=== PATIENT | female | born 1980 | race Caucasian/White ===

== ENCOUNTER 2020-12-11 14:29 | Emergency (ER) | payer BC, OTHER ==
--- OUTSIDE RECORDS SUMMARY | 2020-12-11 14:34 | XMS REPORT | Continuity of Care Document ---
:1980 Author Organization [facility] t Address [address] [place] [address] Care Team Providers Name Role Phone CLAIRE Attending Clinician Unavailable BULMARO Attending Clinician Unavailable ANTON Attending Clinician Unavailable LEIF Attending Clinician Unavailable KATTY Attending Clinician Unavailable LEIF Attending Clinician Unavailable MARIANNE Attending Clinician Unavailable HARINI Attending Clinician Unavailable RUBIN Attending Clinician Unavailable Chet Garza Attending Clinician Problems Condition Condition Condition Status Onset Resolution Last Treating Co mments Source Name Details Category Date Date Treatment Clinician Date SOB Diagnosis Active 2014-072015-08-17 Mem oria 2-17 16:03:00 l SOB 00:00: [place] 00 Active 06/29/2015 [facility] B12 Condition Active 2013-072014-11-22 Mem oria DEFICIENCY 0-21 11:10:00 l B12 00:00: [place] DEFICIENCY 00 Active 05/03/2014 [facility] ALLERGIC Condition Active 2014-11-22 M emoria RHINITIS 1- 11:10:00 l ALLERGIC 00:00: Ramy n RHINITIS 00 Active 08/03/2013 [facility] 789.03 - Diagnosis Active 2012-072014-03-07 M emoria ABDMNAL - 05:26:00 l PAIN RT 789.03 - 00:01: Harper nn ABDMNAL 00 PAIN RT Active 06/07/2013 GATOD Burns DIABETES Condition Active 2014-11-22 M emoria MELLITUS, 03-16 11:10:00 l BORDERLINE DIABETES 00:00: Roberto camejo , MELLITUS, 00 CONTROLLED BORDERLINE , CONTROLLED Active 03/16/2013 [facility] VITAMIN D Condition Active 2014-11-22 Memoria DEFICIENCY - 11:10:00 l VITAMIN 00:00: [place] D 00 DEFICIENCY Active 01/12/2013 [facility] OVERWEIGHT Condition Active 2014-11-22 Memoria 6-11 11:10:00 l 00:00: [place] OVERWEIGHT 00 Active 12/22/2012 [facility] AMENORRHEA Condition Active 2014-11-22 Memoria 6-11 11:10:00 l 00:00: [place] AMENORRHEA 00 Active 12/22/2012 [facility] GERD Condition Active 2014-11-22 Mem oria 6-11 11:10:00 l GERD 00:00: [place] 00 Active 12/22/2012 [facility] INSOMNIA Condition Active 2014-11-22 M emoria 6- 11:10:00 l INSOMNIA 00:00: Ramy n 00 Active 12/22/2012 [facility] HYPERTENSI Condition Active 2014-11-22 Memoria ON - 11:10:00 l 00:00: [place] HYPERTENSI 00 ON Active 3 Condition 11/22/2014 Medical Group MIGRAINE Condition Active 2014-11-22 M emoria HEADACHE 10-23 11:10:00 l MIGRAINE 00:00: Ramy n HEADACHE 00 Active 10/23/2012 [facility] POLYCYSTIC Condition Active 2014-11-22 Memoria OVARIAN 10-23 11:10:00 l DISEASE 00:00: [place] POLYCYSTIC 00 OVARIAN DISEASE Active 10/23/2012 [facility] MOOD Condition Active 2014-11-22 Mem oria DISORDER - 11:10:00 l MOOD 00:00: [place] DISORDER 00 Active 10/23/2012 [facility] History of History of Problem Resolve Univers hypertensi hypertensi d it y of on on [place] Physici ans Extremity Extremity Problem Active Uni vers pain pain ity of [place] Physici ans Pain, Pain, Problem Active Univers dental dental ity of [place] Physici ans Atypical Atypical Problem Active Unive rs facial facial ity of pain pain [place] Physici ans Allergic Allergic Problem Active Unive rs rhinitis rhinitis ity of [place] Physici ans SOBOE SOBOE Problem Active Univers (shortness (shortness it [place] of of breath of breath [place] Physici exertion) exertion) ans Apnea, Apnea, Problem Active Univers sleep sleep ity of [place] Physici ans Palpitatio Palpitatio Problem Active U nivers ns ns ity of [place] Physici ans Atypical Atypical Problem Active Unive rs angina angina ity of [place] Physici ans Amenorrhea Amenorrhea Problem Active U nivers ity of [place] Physici ans Insulin Insulin Problem Active Univers resistance resistance it y of [place] Physici ans Prediabete Prediabete Problem Active U nivers s s ity of [place] Physici ans Problem Active Uni vers test test ity of negative negative [place] Physici ans Lumbar Lumbar Problem Active Univers radiculopa radiculopa it y of thy, acute [place] acute [place] [facility] Primary Primary Problem Active Univers osteoarthr osteoarthr it y of itis of itis of [place] left hip left hip Physic i ans Elbow Elbow Problem Active Univers pain, pain, ity of chronic, chronic, [place] right right Physici ans Atypical Atypical Problem Active Unive rs chest pain chest pain it y of [place] Physici ans Chest Chest Problem Active Univers pain, pain, ity of exertional exertional [place] Asthma in Asthma in Problem Active Uni vers adult adult ity of [place] Physici ans Pain of Pain of Problem Active Univers left hand left hand ity of [place] Physici ans Trigger Trigger Problem Active Univers ring ring ity of finger of finger of [place] left [place] hand Phys ici ans Amenorrhea Problem Active 2013-09-20 M emoria 15:20:12 l [place] Amenorrhea Active 09/20/2013 [facility] Problem Active 2013-09-20 Ga moria Test 15:20:12 l Negative [place] Test Negative Active 4 [facility] Limb Pain Problem Active 2013-09-20 Ga moria 15:20:12 l Limb [place] Pain Active 4 [facility] Obstructiv Problem Active 2020-12-06 M emoria e sleep 04:10:36 l apnea [place] Obstructiv e sleep apnea Active Problem 12/06/2020 2.16.840.1 .430295.4. 391.11.314 634 Chronic Problem Active 2020-12-06 Kale khanh GERD 04:10:36 l Chronic [place] GERD Active Problem 12/06/2020 2.16.840.1 .965569.4. 391.11.314 634 Type 2 Problem Active 2020-12-06 Memor ia diabetes 04:10:36 l mellitus Type 2 Ramy n with diabetes hyperglyce mellitus tank, with without hyperglyce long-term tank, current without use of long-term insulin current use of insulin Active Problem 12/06/2020 2.16.840.1 .883399.4. 391.11.314 634 Essential Problem Active 2020-12-06 Me moria (primary) 04:10:36 l hypertensi Ramy n on Essential (primary) hypertensi on Active Problem 2.16.840.1 .536352.4. 391.11.314 634 Vitamin D Problem Active 2020-12-06 Me moria deficiency 04:10:36 l Vitamin [place] D deficiency Active Problem 12/06/2020 2.16.840.1 .184973.4. 391.11.314 634 Mixed Problem Active 2020-12-06 Memor ia hyperlipid 04:10:36 l emia Mixed [place] hyperlipid emia Active Problem 12/06/2020 2.16.840.1 .357525.4. 391.11.314 634 PCOS Problem Active 2020-12-06 Memor ia (polycysti 04:10:36 l c ovarian PCOS [place] syndrome) (polycysti c ovarian syndrome) Active Problem 12/06/2020 2.16.840.1 .969978.4. 391.11.314 634 Major Problem Active 2020-12-06 Memor ia depressive 04:10:36 l disorder, Major Ramy n remission depressive status disorder, unspecifie remission d, status unspecifie unspecifie d whether d, recurrent unspecifie d whether recurrent Active Problem 12/06/2020 2.16.840.1 .903986.4. 391.11.314 634 Morbid Problem Active 2020-12-06 Memor ia obesity 04:10:36 l Morbid [place] obesity Active Problem 12/06/2020 2.16.840.1 .297202.4. 391.11.314 634 Vitamin B Problem Active 2020-12-06 Me moria 12 04:10:36 l deficiency Vitamin Her padgett B 12 deficiency Active Problem 12/06/2020 2.16.840.1 .201437.4. 391.11.314 634 Intermitte Problem Active 2020-12-06 M quintonria nt asthma 04:10:36 l without [place] complicati Intermitte on, nt asthma unspecifie without d asthma complicati severity on, unspecifie d asthma severity Active Problem 12/06/2020 2.16.840.1 .867284.4. 391.11.314 634 Suspected Diagnosis Active 2020-05-31 Memoria COVID-19 05:10:45 l virus [place] infection Suspected COVID-19 virus infection Active Diagnosis 05/31/2020 2.16.840.1 .534288.4. 391.11.314 634 Acute Diagnosis Active 2020-05-31 Mem oria sinusitis, 05:10:45 l recurrence Acute Harper nn not sinusitis, specified, recurrence unspecifie not d location specified, unspecifie d location Active Diagnosis 05/31/2020 2.16.840.1 .656236.4. 391.11.314 634 Dyspnea, Diagnosis Active 2020-01-12 emoria unspecifie 04:10:31 l d type Dyspnea, Ramy n unspecifie d type Active Diagnosis 01/12/2020 2.16.840.1 .373576.4. 391.11.314 634 Need for Diagnosis Active 2020-01-12 quintonria hepatitis 04:10:31 l C Need for Ramy n screening hepatitis test C screening test Active Diagnosis 01/12/2020 2.16.840.1 .727071.4. 391.11.314 634 Encounter Diagnosis Active 2020-01-12 Memoria for 04:10:31 l screening [place] for other Encounter disorder for screening for other disorder Active Diagnosis 01/12/2020 2.16.840.1 .684627.4. 391.11.314 634 Chronic Diagnosis Active 2020-04-22 Ga ayesha diarrhea 04:10:10 l Chronic [place] diarrhea Active Diagnosis 04/22/2020 2.16.840.1 .695525.4. 391.11.314 634 LLQ Diagnosis Active 2019-02-05 Mem oria abdominal 04:10:13 l pain LLQ [place] abdominal pain Active Diagnosis 02/05/2019 2.16.840.1 .597700.4. 391.11.314 634 Breast Diagnosis Active 2019-02-05 Mem oria lump 04:10:13 l Breast [place] lump Active Diagnosis 02/05/2019 2.16.840.1 .622160.4. 391.11.314 634 Left Diagnosis Active 2019-05-25 Mem oria anterior 05:10:24 l shoulder Left [place] pain anterior shoulder pain Active Diagnosis 05/25/2019 2.16.840.1 .494046.4. 391.11.314 634 Seborrheic Diagnosis Active 2020-08-23 Memoria dermatitis 05:10:24 l [place] Seborrheic dermatitis Active Diagnosis 08/23/2020 2.16.840.1 .384102.4. 391.11.314 634 Upper Diagnosis Active 2020-12-05 Mem oria respirator 04:10:24 l y tract Upper [place] infection, respirator unspecifie y tract d type infection, unspecifie d type Active Diagnosis 12/05/2020 2.16.840.1 .036955.4. 391.11.314 634 Bronchitis Diagnosis Active 2020-12-05 Memoria 04:10:24 l [place] Bronchitis Active Diagnosis 12/05/2020 2.16.840.1 .647356.4. 391.11.314 634 History of Past Illness Condition Condition Condition Status Onset Resolution Last Treating Co mments Source Name Details Category Date Date Treatment Clinician Date BACKACHE Condition Inactiv 2014-11-22 2014-11-22 Memoria NOS e - 11:10:00 11:10:00 l BACKACHE 00:00: Ramy n NOS 00 Inactive 10/20/2014 [facility] DIZZINESS Condition Inactiv 2014-11-22 2014-11-22 Memoria e - 11:10:00 11:10:00 l 00:00: [place] DIZZINESS 00 Inactive 02/21/2014 [facility] PERIPHERAL Condition Inactiv 2014-11-22 2014-11-22 Memoria EDEMA e - 11:10:00 11:10:00 l 00:00: [place] PERIPHERAL 00 EDEMA Inactive 12/09/2013 [facility] COUGH Condition Inactiv 2014-11-22 2014-11-22 Memoria e 4- 11:10:00 11:10:00 l COUGH 00:00: [place] 00 Inactive 11/08/2013 [facility] TONSILLITI Condition Inactiv 2014-11-22 2014-11-22 Memoria S e 4-28 11:10:00 11:10:00 l 00:00: [place] TONSILLITI 00 S Inactive 11/08/2013 [facility] OTITIS Condition Inactiv 2014-11-22 2014-11-22 Memoria MEDIA e 4-08 11:10:00 11:10:00 l OTITIS 00:00: [place] MEDIA 00 Inactive 10/19/2013 [facility] DE Condition Inactiv 2014-11-22 2014-11-22 Memoria QUERVAIN'S e 3-05 11:10:00 11:10:00 l TENOSYNOVI DE 00:00: Ramy n TIS, LEFT QUERVAIN'S 00 WRIST TENOSYNOVI TIS, LEFT WRIST Inactive 09/15/2013 [facility] GRIEF Condition Inactiv 2014-11-22 2014-11-22 Memoria REACTION e 3-05 11:10:00 11:10:00 l GRIEF 00:00: [place] REACTION 00 Inactive 09/15/2013 [facility] KNEE PAIN, Condition Inactiv 2014-11-22 2014-11-22 Memoria RIGHT, e 1-10 11:10:00 11:10:00 l ACUTE KNEE 00:00: [place] PAIN, 00 RIGHT, ACUTE Inactive 07/23/2013 [facility] ABDOMINAL Condition Inactiv 2012-072014-11-22 2014-11-22 Memoria PAIN, e 1-22 11:10:00 11:10:00 l RIGHT 00:00: [place] LOWER ABDOMINAL 00 QUADRANT PAIN, RIGHT LOWER QUADRANT Inactive 06/04/2013 [facility] VERRUCA Condition Inactiv 2014-11-22 2014-11-22 Memoria VULGARIS e 9-03 11:10:00 11:10:00 l VERRUCA 00:00: [place] VULGARIS 00 Inactive 03/16/2013 [facility] ROUTINE Condition Inactiv 2014-11-22 2014-11-22 Memoria GENERAL e 6- 11:10:00 11:10:00 l MEDICAL ROUTINE 00:00: Ramy n [email or web address] 00 H CARE MEDICAL FACL [email or web address] FACL Inactive 12/22/2012 [facility] SCREENING, Condition Inactiv 2014-11-22 2014-11-22 Memoria DIABETES e 6-11 11:10:00 11:10:00 l MELLITUS 00:00: [place] SCREENING, 00 DIABETES MELLITUS Inactive 12/22/2012 [facility] FATIGUE Condition Inactiv 2014-11-22 2014-11-22 Memoria e 6- 11:10:00 11:10:00 l FATIGUE 00:00: [place] 00 Inactive 12/22/2012 [facility] LATERAL Condition Inactiv 2014-11-22 2014-11-22 Memoria EPICONDYLI e 6-11 11:10:00 11:10:00 l TIS LATERAL 00:00: [place] EPICONDYLI 00 TIS Inactive 12/22/2012 [facility] ACUTE Condition Inactiv 2014-11-22 2014-11-22 Memoria PHARYNGITI e -12 11:10:00 11:10:00 l S ACUTE 00:00: [place] PHARYNGITI 00 S Inactive 10/23/2012 [facility] Allergies, Adverse Reactions, Alerts Allergy Allergy Status Severity Reaction(s) Onset Inactive Treating Comm ents Source Name Type Date Date Clinician Sulfamet Sulfamet Active Info Not Kale khanh hoxazole hoxazole Available 5-24 l 00:00: [place] 00 Flagyl Flagyl Active Info Not Memoria Available 5-24 l 00:00: Doxycycl Doxycycl Active Info Not Kale khanh ine ine Available 5-24 l Hyclate Hyclate 00:00: SULFA SULFA Active Memoria 4-12 l 00:00: DOXYCYCL DOXYCYCL Active Memori a INE INE 4-12 l 00:00: Doxycycl Allergy Active Univers ine to drug ity of Monohydr (finding [place] ate CAPS ) Physici ans Sulfa Allergy Active Univers Drugs to drug ity of (finding [place] ) Physici ans Sulfa Sulfa Active Memoria Drugs Drugs l Doxycycl Doxycycl Active Memori a ine ine l Monohydr Monohydr Ramy n ate CAPS ate CAPS Family History Family Member Diagnosis Comments Start Date Stop Date Source Grandmother Family history of Type U [facility] 2 diabetes mellitus Physi cians without complication Grandmother [facility] Mother Family history of Univers ity [facility] Asthma Physicians Mother Family history of Univers ity [facility] Cancer Physicians Mother Family history of Univers ity [facility] malignant neoplasm of Phy sicians uterus Mother Family history of Univers ity [facility] Heart disease Physicians Mother Family history of Univers ity [facility] Allergy Physicians Father Family history of Univers ity of [place] Unknown cause of Physicia ns morbidity or mortality Social History Social Habit Start Date Stop Date Quantity Comments Source Social History 2013-09-20 2013-09-20 [facility] allen 15:20:12 15:20:12 Smoking Status Start Date Stop Date Source Never smoked tobacco (finding) U [facility] Physicians Medications Ordered Filled Start Stop Current Ordering Indication Dosage Frequency Signature Comments Components Source Medication Medication Date Date Medication? Clinician (SIG) Name Name Topamax Yes KHURSHEED 1 tablet M emoria 5-25 BANGLAWALA l 04:10: Accu-Chek Yes KHURSHEED as Mem oria Gwen 5-25 BANG[place]WAL[place] directed l 04:10: 24 BD Yes KHURSHEED as Memoria Ultra-Fine 5-25 BANGLAWAL[place] directed l Pen [place] 04:10: Ramy n 24 immodium Yes KHURSHEED 2 tab Mem oria 5-25 BANGLAWALA l 04:10: [place] Omeprazole 0 Yes KHURSHEED 1 capsule Memoria 5-25 BANGLAWALA l 04:10: [place] Vitamin D-3 0 Yes KHURSHEED 1 tablet Memoria 5-25 BANGLAWALA l 04:10: [place] Lasix 0 Yes KHURSHEED 1 tablet Mem oria 5-25 BANGLAWALA l 04:10: [place] ZyrTEC 0 Yes KHURSHEED 1 tablet Me moria 5-25 BANGLAWALA l 04:10: [place] 24 Aspirin EC 0 Yes KHURSHEED 1 tablet Memoria Lo-Dose 5-25 BANGLAWALA l 04:10: [place] Singulair 0 Yes KHURSHEED 1 tablet Memoria 5-25 BANGLAWALA l 04:10: [place] Lexapro 0 Yes KHURSHEED 1 tablet M emoria 5-25 BANGLAWALA l 04:10: [place] Breo 0 Yes KHURSHEED 1 puff Memori a Ellipta 5-25 BANGLAWALA l 04:10: [place] Bystolic 0 Yes KHURSHEED 1 tablet Memoria 5-25 BANGLAWALA l 04:10: [place] Trulicity 0 Yes KHURSHEED 1.5mg Me moria 5-25 BANGLAWALA l 04:10: [place] Loperamide 0 Yes KHURSHEED TAKE 2 Memoria HCl 5-25 BANGLAWALA TABLETS BY l 04:10: MOUTH [place] 24 DAILY Promethazin 0 Yes KHURSHEED 5 ml as Memoria e-DM 5-25 BANGLAWALA needed l 00:00: [place] 00 Zithromax 0 Yes KHURSHEED as Mem oria Z-Aubrie 5-24 BANGLAWALA directed l 00:00: [place] 00 Trulicity 0 Yes KHURSHEED 1.5mg Me moria 2-10 BANGLAWALA l 05:10: [place] 37 Bystolic 0 Yes KHURSHEED 1 tablet Memoria 2-10 BANGLAWALA l 05:10: [place] 24 Omeprazole 0 Yes KHURSHEED 1 capsule Memoria 2-10 BANGLAWALA l 05:10: [place] 24 Trulicity 2020-0 Yes KHURSHEED 1.5mg Me moria 1-06 BANGLAWALA l 00:00: [place] 00 Zithromax 2019- Yes KHURSHEED 2 tablet Memoria Z-Aubrie 1-17 BANGLAWALA on the l 00:00: first day, [place] 00 then 1 tablet daily for 4 days Montelukast Montelukast 2019- Yes TEDDY 1 TAKE 1 Univers Sodium 10 Sodium 10 0-16 ANTON TABLET AT ity of MG Oral MG Oral 00:00: M.D. BEDTIME. [place]hinde as Tablet Tablet 00 Physici ans Breo Breo 2019-07 Yes TEDDY 1 QD INHALE 1 Univers Ellipta Ellipta 0-16 ANTON PUFFS ity of 200-25 200-25 00:00: M.D. DAILY [place] MCG/INH MCG/INH 00 Physici Inhalation Inhalation ans Aerosol Aerosol Powder Powder Breath Breath Activated Activated Albuterol Albuterol 2019-07 Yes TEDDY INHALE 1 Univers Sulfate HFA Sulfate HFA 0-16 ANTON TO 2 PUFFS ity of 108 (90 108 (90 00:00: M.D. EVERY [place] [facility] [facility] 00 6 HOURS Physici MCG/ACT MCG/ACT NEEDED. ans Inhalation Inhalation Aerosol Aerosol Solution Solution Meloxicam 2019-07 Yes KHURSHEED 1 tablet Memoria 0-10 BANGLAWALA l 04:10: [place] 10 Trulicity 2020-0 Yes KHURSHEED 0.75mg M emoria 9-29 BANGLAWALA l 00:00: [place] 00 Trulicity 2020-0 Yes KHURSHEED as Mem oria 9-28 BANGLAWALA directed l 00:00: [place] 00 Pristiq 2020-0 Yes KHURSHEED 1 tablet M emoria 6-30 BANGLAWALA l 00:00: [place] 00 ProAir HFA 2020-0 Yes KHURSHEED 2 puff as Memoria 3-16 BANGLAWALA needed l 00:00: [place] 00 ProAir HFA 2020-0 Yes KHURSHEED 2 puff as Memoria 3-16 BANGLAWALA needed l 00:00: [place] 00 Celexa 2018-07 Yes KHURSHEED 1 tablet Me moria 1-12 BANGLAWALA l 05:10: Lexapro 2019-1 Yes KHURSHEED 1 tablet M emoria 1-11 BANGLAWALA l 00:00: Meloxicam 2019-1 Yes KHURSHEED 1 tablet Memoria 1-11 BANGLAWALA l 00:00: Meloxicam 2019-0 Yes KHURSHEED 1 tablet Memoria 7-26 BANGLAWALA l 04:10: Tramadol 2019-0 Yes KHURSHEED 1 tablet Memoria HCl 7-26 BANGLAWALA as needed l 04:10: Trulicity 2019-0 Yes KHURSHEED as Mem oria 7-25 BANGLAWALA directed l 00:00: MetFORMIN 2019-0 Yes KHURSHEED 1 tablet Memoria HCl ER 2-27 BANGLAWALA l 00:00: MetFORMIN 2019-0 Yes KHURSHEED 1 tablet Memoria HCl ER 2-27 BANGLAWALA l 00:00: Colestipol 2019-0 Yes KHURSHEED 2 tablets Memoria HCl 2-27 BANGLAWALA l 00:00: Meloxicam Meloxicam Yes ASYA TAKE 1 Univers 7.5 MG Oral 7.5 MG Oral 7-24 CRUMBIE TABLET ity of Tablet Tablet 00:00: M.D. DAILY [place] 00 NEEDED. Physici ans methylPREDN methylPREDN Yes ASYA ONE TABLE Univers ISolone 4 ISolone 4 7-24 CRUMBIE TWICE i ty of MG Oral MG Oral 00:00: M.D. DAILY [place] Tablet Tablet 00 Physici ans medroxyPROG medroxyPROG Yes ABHISHEK TAKE 1 Univers ESTERone ESTERone 7-27 PRACHI-EFTE TABLET ity of Acetate 10 Acetate 10 00:00: FAREED M.D. DAILY for [place] MG Oral MG Oral 00 ten days Physi ci Tablet Tablet every 6 ans weeks if no menses Vitamin D Vitamin D Yes 2 capsules Univers (Cholecalci (Cholecalci 5-10 daily ity of ferol) 10 ferol) 10 00:00: Kehinde as MCG (400 MCG (400 00 Physici UNIT) Oral UNIT) Oral ans Capsule Capsule ZyrTEC ZyrTEC 2017-0 Yes 1 TAKE 1 Univers Allergy 10 Allergy 10 5-10 TABLET AT ity of MG Oral MG Oral 00:00: BEDTIME. Kehinde as Tablet Tablet 00 Physici ans EQ EQ Yes 1 capsule [facility] Omeprazole Omeprazole 5-10 daily it y of Magnesium Magnesium 00:00: Kehinde as 20 MG Oral 20 MG Oral 00 Phy sici Capsule Capsule ans Delayed Delayed Release Release VITAMIN D Yes 1 capsule Mem oria (ERGOCALCIF 5-20 weekly l DOTTIE) 00:00: Ramy n UNIT CAPS 00 VIMOVO Yes one by Memoria 500-20 MG 4-09 mouth l TBEC 00:00: twice a [place] 00 day as needed for pain METHYLPREDN No take as Mem oria ISOLONE 4-09 directed l (AUBRIE) 4 MG 00:00: [place] TABS 00 CYCLOBENZAP Yes 1 or 2 Kale khanh RINE HCL 10 4-09 tablets at l MG TABS 00:00: night as Ramy n 00 needed for spasms or tension VITAMIN D 2013-07 No 1 capsule Mem oria (ERGOCALCIF 0-26 weekly l DOTTIE) 00:00: Ramy n UNIT CAPS 00 METFORMIN 2013-07 No 1 tablet Kale khanh HCL ER 500 0-26 daily x 1 l MG 00:00: week, then [place] [id number] 00 increase to 1 tab twice daily as tolerated METFORMIN 2013-07 Yes 1 tablet Kale khanh HCL ER 500 0-26 daily x 1 l MG 00:00: week, then [place] [id number] 00 increase to 1 tab twice daily as tolerated TRIAMTERENE No 1 tab po Me moria -HCTZ 5-29 daily as l 37.5-25 MG 00:00: needed for H ermann TABS 00 peripheral edema TRIAMTERENE No 1 tab po Me moria -HCTZ 5-29 daily as l 37.5-25 MG 00:00: needed for H ermann TABS 00 peripheral edema TUSSIONEX No Take one Kale khanh PENNKINETIC 5-01 teaspoon l ER 10-8 00:00: (5 ml) [place] MG/5ML LQCR 00 twice daily as needed for cough ULTRAM TABS No 1 tablets M emoria 50 MG 4-28 every 8 l 00:00: hours as [place] 00 needed for pain NEURONTIN No Take one Kale khanh 300 MG CAPS 4-28 capsule by l 00:00: mouth [place] 00 twice a day MEDROL No Take as Memoria (AUBRIE) 4 MG 4-28 directed l TABS 00:00: [place] 00 ZITHROMAX No 2 tablets Mem oria TAB 250MG 4-28 today, l 00:00: then 1 [place] 00 tablet daily X 4 days MUCINEX DM No Take 1 Memor ia 30-600 MG 4-28 tablet by l TB12 00:00: mouth [place] 00 every 12 hours NEURONTIN No Take one Kale khanh 300 MG CAPS 4-28 capsule by l 00:00: mouth [place] 00 twice a day ULTRAM TABS No 1 tablets M emoria 50 MG 4-28 every 8 l 00:00: hours as [place] 00 needed for pain MEDROL No Take as Memoria (AUBRIE) 4 MG 4-28 directed l TABS 00:00: [place] 00 MUCINEX DM No Take 1 Memor ia 30-600 MG 4-28 tablet by l TB12 00:00: mouth [place] 00 every 12 hours NEURONTIN No Take one Kale khanh 300 MG CAPS 4-28 capsule by l 00:00: mouth [place] 00 twice a day CLARITIN No 1 tablet Memor ia TAB 10MG 4-08 daily l 00:00: [place] 00 TESSALON No Take one Memor ia PER CAP 4-08 capsule 3 l 100MG 00:00: times [place] 00 daily as needed for cough or congestion ZITHROMAX No 2 tablets Mem oria Z-AUBRIE 250 4-08 day 1, l MG TABS 00:00: then 1 [place] 00 tablet daily X 4 days NASONEX No Two sprays Kale khanh SUSP 50 4-08 each l MCG/ACT 00:00: nostril [place] 00 daily CLARITIN No 1 tablet Memor ia TAB 10MG 4-08 daily l 00:00: [place] 00 NASONEX No Two sprays Kale khanh SUSP 50 4-08 each l MCG/ACT 00:00: nostril daily MEDROL No Take as Memoria (AUBRIE) 4 MG 3-05 directed l TABS 00:00: MEDROL No Take as Memoria (AUBRIE) 4 MG 3-05 directed l TABS 00:00: XYZAL 5 MG No 1 po qd Kale khanh TABS 1-21 prn l 00:00: allergies FLONASE 50 No 1-2 sprays M emoria MCG/ACT 1-21 in each l SUSP 00:00: nostril daily FLONASE 50 No 1-2 sprays M emoria MCG/ACT 1-21 in each l SUSP 00:00: nostril daily NAPROSYN No 1 tab po Memor ia 500 MG TABS 1-10 q12 prn l 00:00: pain METFORMIN No taking tid Me moria LIQUID FORM 9-03 l 00:00: PROVERA 10 No 1 tab po Mem oria MG TABS 9-03 qd l 00:00: Bystolic 5 Yes ; Start Kale khanh MG Oral 03-09 Date: l Tablet 05:00: 03/09/2013 Harper nn 00 (Active) Topamax 25 Yes ; Start Kale khanh MG Oral 03-09 Date: l Tablet 05:00: 03/09/2013 Harper nn 00 (Active) CeleXA 20 Yes ; Start Memor ia MG Oral 03-09 Date: l Tablet 05:00: 03/09/2013 Harper nn 00 (Active) Glucophage Yes ; Start Kale khanh 500 MG Oral 03-09 Date: l Tablet 05:00: 03/09/2013 Harper nn 00 (Active) Claritin-D Yes ; Start Kale khanh 12 Hour 03-09 Date: l 5-120 MG 05:00: 03/09/2013 Her padgett Oral Tablet 00 (Active) Extended Release 12 Hour Vitamin D Yes ; Start Memor ia (Ergocalcif 03-09 Date: l dottie) [id number] 05:00: 03/09/2013 [place] UNIT Oral 00 (Active) Capsule MedroxyPROG Yes ; Start Mem oria ESTERone 03-09 Date: l Acetate 10 05:00: 03/09/2013 H ermann MG Oral 00 (Active) Tablet VITAMIN D Yes 1 tab po q Me moria (ERGOCALCIF 7-02 weekly for l DOTTIE) 00:00: 12 weeks He rmann UNIT CAPS 00 VITAMIN D Yes 1 tab po q Me moria (ERGOCALCIF 7-02 weekly for l DOTTIE) 00:00: 12 weeks He rmann UNIT CAPS 00 BYSTOLIC 5 Yes 1 tab po Mem oria MG TABS 4-12 qd for l 00:00: blood [place] 00 pressure CELEXA 20 Yes 1 tab po Kale khanh MG TABS 4-12 daily for l 00:00: mood [place] 00 TOPAMAX 25 Yes 1 tab po Mem oria MG TABS 4-12 bid for l 00:00: migraines [place] 00 AMBIEN 5 MG No 1 po qhs Me moria TABS 4-12 prn l 00:00: [place] 00 AUGMENTIN No 1 tab po Kale khanh 875-125 MG 4-12 bid x 10 l TABS 00:00: days for [place] 00 pharyngiti s CELEXA 20 Yes 1 tab po Kale khanh MG TABS 4-12 daily for l 00:00: mood [place] 00 TOPAMAX 25 Yes 1 tab po Mem oria MG TABS 4-12 bid for l 00:00: migraines [place] 00 AUGMENTIN No 1 tab po Kale khanh 875-125 MG 4-12 bid x 10 l TABS 00:00: days for [place] 00 pharyngiti s AMBIEN 5 MG No 1 po qhs Me moria TABS 4-12 prn l 00:00: [place] 00 BYSTOLIC 10 Yes 1 tablet Me moria MG TABS 4-12 daily l 00:00: [place] 00 BYSTOLIC 5 Yes 1 tab po Mem oria MG TABS 4-12 qd for l 00:00: blood [place] 00 pressure TOPAMAX 25 Yes 1 tab po Mem oria MG TABS 4-12 bid for l 00:00: migraines AMBIEN 5 MG No 1 po qhs Me moria TABS 4-12 prn l 00:00: BYSTOLIC 10 Yes 1 tablet Me moria MG TABS 4-12 daily l 00:00: Lexapro 20 Lexapro 20 Yes Uni vers MG Oral MG Oral ity of Tablet Tablet [place] [facility] Glucophage Glucophage Yes Uni vers 500 MG TABS 500 MG TABS i ty of [place] [facility] Trulicity Trulicity Yes Unive rs 0.75 0.75 ity of MG/0.5ML MG/0.5ML [place] Subcutaneou Subcutaneou P hysici s Solution s Solution ans Pen-injecto Pen-injecto r r Lasix 20 MG Lasix 20 MG Yes U nivers Oral Tablet Oral Tablet i ty of [place] [facility] Bystolic 10 Bystolic 10 Yes 1 QD TAKE 1 Univers MG Oral MG Oral TABLET ity of Tablet Tablet DAILY. [place] [facility] Topamax 50 Topamax 50 Yes 1 QD TAKE 1 U nivers MG Oral MG Oral TABLET ity of Tablet Tablet DAILY. [place] [facility] Aspirin 81 Aspirin 81 Yes Uni vers MG TABS MG [facility]S [facility] Immunizations Ordered Immunization Filled Immunization Date Status Commen ts Source Name Name Fluzone Quadrivalent 2020-04-28 Completed Univ ersity of 0.5 ML Intramuscular 11:30:00 [place] Suspension Prefilled Syringe Vital Signs Vital Name Observation Time Observation Value Comments Source Weight 2020-12-04 [facility] Ramy n 22:45:00 [facility] Diastolic (mm Hg) 2020-12-04 [facility] ermann 22:45:00 Systolic (mm Hg) 2020-12-04 [facility] rmann 22:45:00 Weight 2020-08-22 [facility] Ramy n 16:30:00 Height 2020-08-22 [facility] Ramy n 16:30:00 Temperature Oral 2020-08-22 98.1 F [facility] rmann (F) 16:30:00 Heart Rate 2020-08-22 [facility] Ramy n 16:30:00 Diastolic (mm Hg) 2020-08-22 Krishna Pace ermann 16:30:00 Systolic (mm Hg) 2020-08-22 [facility] Roberto rmann 16:30:00 Weight 2020-05-30 Krishna Mccann n 20:45:00 Height 2020-05-30 Krishna Mccann n 20:45:00 Systolic blood 2020-05-09 116 mm[Hg] Location: BRIGIDA; [facility] 11:51:00 Position: [place] [facility] s Sitting Diastolic blood 2020-05-09 70 mm[Hg] Location: KAYLAN; [facility] 11:51:00 Position: [place] [facility] Sitting Body height 2020-05-09 64 [in_us] University of 11:51: [place] [facility] Weight 2020-05-09 377 [lb_av] University of 11:51: [place] [facility] Body mass index 2020-05-09 64.71 kg/m2 University o f (BMI) [Ratio] 11:51:00 [place] [facility] Body temperature 2020-05-09 97.9 [degF] Method: [place] of :51: Tympanic [place] [facility] Heart Rate 2020-05-09 90 /min Location: [place] of 11:51:00 Brachial [place] [facility] Artery; Respiratory rate 2020-05-09 18 /min Quality: Normal Universi ty of 11:51:00 [place] [facility] O2 SAT 2020-05-09 97 % Source: [place] of 11:51:00 [place] [facility] Systolic blood 2020-04-28 139 mm[Hg] Location: WINNIE; [facility] 11:18:00 Position: [place] Physician s Sitting Diastolic blood 2020-04-28 85 mm[Hg] Location: WINNIE; [facility] 11:18:00 Position: [place] Physician s Sitting Body height 2020-04-28 64 [in_us] University of 11:18:00 [place] [facility] Weight 2020-04-28 377 [lb_av] University of 11:18:00 [place] [facility] Body mass index 2020-04-28 64.71 kg/m2 University o f (BMI) [Ratio] 11:18:00 [place] [facility] Body temperature 2020-04-28 97.5 [degF] University of 11:18:00 [place] [facility] Heart Rate 2020-04-28 85 /min University of 11:18:00 [place] [facility] Respiratory rate 2020-04-28 18 /min University of 11:18:00 [place] [facility] O2 SAT 2020-04-28 97 % Source: [facility] :18:00 Non-Rebreather [place] [facility] Weight 2020-04-20 [facility] Ramy n 19:15:00 Height 2020-04-20 Krishna Mccann n 19:15:00 Systolic blood 2020-04-12 146 mm[Hg] Location: RUE; [facility] 15:48:00 Position: [place] Physician s Sitting Diastolic blood 2020-04-12 75 mm[Hg] Location: RUE; [facility] 15:48:00 Position: [place] [facility]ician s Sitting Body height 2020-04-12 64 [in_us] University of 15:48:00 [place] [facility] Weight 2020-04-12 381.375 [lb_av] University o f 15:48:00 [place] [facility] Body mass index 2020-04-12 65.46 kg/m2 University o f (BMI) [Ratio] 15:48:00 [place] [facility] Body temperature 2020-04-12 97.8 [degF] Method: [facility] 15:48:00 Temporal [place] [facility] Heart Rate 2020-04-12 82 /min Location: R [facility] 15:48:00 Brachial [place] [facility] Artery; Respiratory rate 2020-04-12 16 /min Quality: Normal Universi ty of 15:48:00 [place] [facility] Systolic blood 2020-02-24 152 mm[Hg] Location: RUE; [facility] 10:00:00 Position: [place] Physician s Sitting Diastolic blood 2020-02-24 85 mm[Hg] Location: RUE; [facility] 10:00:00 Position: [place] Physician s Sitting Body height 2020-02-24 64 [in_us] University of 10:00:00 [place] [facility] Weight 2020-02-24 376 [lb_av] University of 10:00:00 [place] [facility] Body mass index 2020-02-24 64.54 kg/m2 University o f (BMI) [Ratio] 10:00:00 [place] [facility] Body temperature 2020-02-24 97.9 [degF] University of 10:00:00 [place] [facility] Heart Rate 2020-02-24 85 /min University of 10:00:00 [place] [facility] Respiratory rate 2020-02-24 18 /min University of 10:00:00 [place] [facility] O2 SAT 2020-02-24 98 % Source: [facility] 10:00:00 [place] [facility] Weight 2020-01-11 [facility] Ramy n 16:00:00 Height 2020-01-11 [facility] Ramy n 16:00:00 Temperature Oral 2020-01-11 97.5 F [facility] rmann (F) 16:00:00 Heart Rate 2020-01-11 [facility] Ramy n 16:00:00 Diastolic (mm Hg) 2020-01-11 [facility] ermann 16:00:00 Systolic (mm Hg) 2020-01-11 [facility] rmann 16:00:00 Weight 2019-05-24 [facility] Ramy n 16:45:00 Height 2019-05-24 [facility] Ramy n 16:45:00 Temperature Oral 2019-05-24 98.0 F [facility] (F) 16:45:00 Heart Rate 2019-05-24 [facility] Ramy n 16:45:00 Diastolic (mm Hg) 2019-05-24 [facility] ermann 16:45:00 Systolic (mm Hg) 2019-05-24 [facility] rmann 16:45:00 Weight 2019-02-04 [facility] Ramy n 15:00:00 Height 2019-02-04 [facility] Ramy n 15:00:00 Temperature Oral 2019-02-04 97.9 F [facility] (F) 15:00:00 Heart Rate 2019-02-04 [facility] Ramy n 15:00:00 Diastolic (mm Hg) 2019-02-04 [facility] ermann 15:00:00 Systolic (mm Hg) 2019-02-04 [facility] rmann 15:00:00 Weight 2014-11-22 [facility] Ramy n 15:32:43 Temperature Oral 2014-11-22 97.0 F [facility] (F) 15:32:43 Systolic (mm Hg) 2014-11-22 [facility] rmann 15:32:43 Diastolic (mm Hg) 2014-11-22 [facility] ermann 15:32:43 Heart Rate 2014-11-22 [facility] Ramy n 15:32:43 Weight 2014-10-20 [facility] Ramy n 14:10:13 Temperature Oral 2014-10-20 97.3 F [facility] (F) 14:10:13 Systolic (mm Hg) 2014-10-20 [facility] rmann 14:10:13 Diastolic (mm Hg) 2014-10-20 [facility] ermann 14:10:13 Heart Rate 2014-10-20 [facility] Ramy n 14:10:13 Height 2014-05-03 [facility] Ramy n 13:04:41 Temperature Oral 2014-05-03 99.0 F [facility] (F) 13:04:41 Heart Rate 2014-05-03 [facility] Ramy n 13:04:41 Systolic (mm Hg) 2014-05-03 [facility] rmann 13:04:41 Diastolic (mm Hg) 2014-05-03 [facility] ermann 13:04:41 Weight 2014-05-03 [facility] Ramy n 13:04:41 Weight 2014-02-21 [facility] Ramy n 12:58:51 Temperature Oral 2014-02-21 97.5 F [facility] (F) 12:58:51 Systolic (mm Hg) 2014-02-21 [facility] rmann 12:58:51 Diastolic (mm Hg) 2014-02-21 [facility] ermann 12:58:51 Temperature Oral 2013-12-09 97.2 F [facility] (F) 12:37:40 Heart Rate 2013-12-09 [facility] Ramy n 12:37:40 Systolic (mm Hg) 2013-12-09 [facility] rmann 12:37:40 Diastolic (mm Hg) 2013-12-09 [facility] ermann 12:37:40 Weight 2013-12-09 [facility] Ramy n 12:37:40 Weight 2013-11-08 [facility] Ramy n 16:03:22 Temperature Oral 2013-11-08 97.7 F [facility] (F) 16:03:22 Systolic (mm Hg) 2013-11-08 [facility] rmann 16:03:22 Diastolic (mm Hg) 2013-11-08 [facility] ermann 16:03:22 Heart Rate 2013-11-08 [facility] Ramy n 16:03:22 Weight 2013-10-19 [facility] Ramy n 18:33:28 Temperature Oral 2013-10-19 97.7 F [facility] (F) 18:33:28 Systolic (mm Hg) 2013-10-19 [facility] 18:33:28 Diastolic (mm Hg) 2013-10-19 [facility] ermann 18:33:28 Heart Rate 2013-10-19 [facility] Ramy n 18:33:28 Weight 2013-09-15 [facility] Ramy n 19:03:41 Temperature Oral 2013-09-15 97.8 F [facility] (F) 19:03:41 Heart Rate 2013-09-15 [facility] Ramy n 19:03:41 Systolic (mm Hg) 2013-09-15 [facility] rmann 19:03:41 Diastolic (mm Hg) 2013-09-15 [facility] ermann 19:03:41 Heart Rate 2013-08-03 [facility] Ramy n 18:58:22 Systolic (mm Hg) 2013-08-03 [facility] rmann 18:58:22 Diastolic (mm Hg) 2013-08-03 [facility] ermann 18:58:22 Temperature Oral 2013-08-03 97.4 F [facility] (F) 18:58:22 Weight 2013-08-03 [facility] Ramy n 18:58:22 Weight 2013-07-23 [facility] Ramy n 14:16:21 Temperature Oral 2013-07-23 96.8 F [facility] (F) 14:16:21 Systolic (mm Hg) 2013-07-23 [facility] 14:16:21 Diastolic (mm Hg) 2013-07-23 [facility] ermann 14:16:21 Heart Rate 2013-07-23 [facility] Ramy n 14:16:21 Weight 2013-06-04 [facility] Ramy n 20:33:42 Temperature Oral 2013-06-04 96.3 F [facility] (F) 20:33:42 Systolic (mm Hg) 2013-06-04 [facility] 20:33:42 Diastolic (mm Hg) 2013-06-04 [facility] ermann 20:33:42 Heart Rate 2013-06-04 [facility] Ramy n 20:33:42 Temperature Oral 2013-03-16 96.3 F [facility] (F) 19:39:33 Heart Rate 2013-03-16 [facility] Ramy n 19:39:33 Systolic (mm Hg) 2013-03-16 [facility] rmann 19:39:33 Diastolic (mm Hg) 2013-03-16 [facility] ermann 19:39:33 Weight 2013-03-16 [facility] Ramy n 19:39:33 Weight 2012-12-22 [facility] Ramy n 19:24:50 Temperature Oral 2012-12-22 97.9 F [facility] (F) 19:24:50 Systolic (mm Hg) 2012-12-22 [facility] 19:24:50 Diastolic (mm Hg) 2012-12-22 [facility] ermann 19:24:50 Heart Rate 2012-12-22 Krishna Mccann n 19:24:50 Height 2012-10-23 Krishna Mccann n 18:54:00 Temperature Oral 2012-10-23 98.2 F Krishna Mejia rmann (F) 18:54:00 Systolic (mm Hg) 2012-10-23 Krishna Mejia rmann 18:54:00 Diastolic (mm Hg) 2012-10-23 [facility] Katelynn ermann 18:54:00 Heart Rate 2012-10-23 Krishna Mccann n 18:54:00 Weight 2012-10-23 Krishna Mccann n 18:54:00 Procedures Procedure Date / Time Performing Clinician Source Performed [U] XRAY HAND MIN 3 VWS 2020-10-02 00:00:00 [facility] LEFT [id number] Physicians [N] 30 Day Event Monitor 2020-05-09 00:00:00 [facility] Recording Physicians [N] Plain Treadmill-Non 2020-04-13 00:00:00 [facility] Imaging Stress Physicians Test-Standard Narinder [N] 2D Echo complete, with 2020-04-13 [facility] [id number] [facility] Sleep Lab - Sleep 2020-02-24 00:00:00 [facility] Study Home Sleep Test Physicians [N] 2D Echo complete, with 2020-02-24 00:00[facility] [id number] Physicians [U] XRAY ELBOW MIN 3 VWS 2019-11-24 00:00:00 [facility] RIGHT [id number] Physicians Physical Therapy 2018-08-17 00:00:00 [facility] Physicians [U] XRAY HIPS BILATERAL 2018-08-14 00:00:00 Univ [facility] MIN 2 VWS AND AP PELVIS Physici ans [id number] [U] XRAY SPINE LUMBOSACRAL 2018-08-14 00:00[facility] VWS [id number] Physicians [U] XRAY SPINE LUMBOSACRAL 2018-04-08 00:00[facility] S [id number] Physicians [UTP] EMG 2018-02-02 00:00:00 [place] [facility] [place] [facility] History of Cholecystectomy Unive [facility] Physicians Plan of Care Planned Activity Planned Date Details Comments Source Diagnostic Test 2020-04-13 [N] 2D Echo [facility] Pending 00:00:00 complete, with Physicians Doppler 32541 [code = [N] 2D Echo complete, with Doppler 74683] Diagnostic Test 2020-04-13 [N] Plain [facility] Pending 00:00:00 Treadmill-Non Physicians Imaging Stress Test-Standard Narinder [code = [N] Plain Treadmill-Non Imaging Stress Test-Standard Narinder] Diagnostic Test 2020-02-24 [N] 2D Echo [facility] Pending 00:00:00 complete, with Physicians Doppler 11639 [code = [N] 2D Echo complete, with Doppler 97722] Diagnostic Test 2020-02-24 [facility] Sleep Lab - [facility] Pending 00:00:00 Sleep Study Home Physicians Sleep Test [code = [facility] Sleep Lab - Sleep Study Home Sleep Test] Diagnostic Test 2018-02-26 [UTP] EMG [code = [facility] [place] Pending 00:00:00 [UTP] EMG] Physicians Diagnostic Test 2018-02-02 [UTP] EMG [code = [facility] [place] Pending 00:00:00 [UTP] EMG] Physicians Diagnostic Test 2018-02-02 [UTP] EMG [code = [facility] [place] Pending 00:00:00 [UTP] EMG] Physicians Diagnostic Test 2018-02-02 [UTP] EMG [code = [facility] [place] Pending 00:00:00 [UTP] EMG] Physicians Future Scheduled Test 2013-09-20 Plan of Care [facility] [place] 15:20:12 [code = 22844-2] Encounters Start End Encounter Admission Attending Care Care Encounter Source Date/Time Date/Time Type Type Clinicians Facility Department ID 2020-12-05 2020-12-05 [id number] [facility] 14:[facility] 14:03:00 [facility] ve Family Family Medcine Medcine 2020-12-04 2020-12-04 [facility] [id number] [facility] 17:45:00 17:45:00 Integrati Integrative alWorks ve Family Family Medcine Medcine 2020-12-04 2020-12-04 [facility] [id number] [facility] 09:23:00 09:23:00 Integrati Integrative alWorks ve Family Family Medcine Medcine 2020-10-05 2020-10-05 Nichelle VYASOUR, UTP Orthopedics [id number] Univers 10:45:00 10:45:00 t; zachery KRUEGER [facility] Jere M.D. [facility] Sergey Vasquez [facility] 2020-10-04 2020-10-04 [facility] [id number] eClinic 10:25:00 10:25:00 Integrati Integrative alWorks ve Family Family Medcine Medcine 2020-08-22 2020-08-22 [facility] [id number] eClinic 14:08:00 14:08:00 Integrati Integrative alWorks ve Family Family Medcine Medcine 2020-08-22 2020-08-22 [facility] [id number] eClinic 10:30:00 10:30:00 Integrati Integrative alWorks ve Family Family Medcine Medcine 2020-05-30 2020-05-30 [facility] [id number] eClinic 14:45:00 14:45:00 Integrati Integrative alWorks ve Family Family Medcine Medcine 2020-05-09 2020-05-09 Appointmen GERALD CHAMBERLAIN Multispecia [id number] Univers 10:45:00 10:45:00 t; AMANDA CHAMBERLAIN lty - Aamir M.D. [place] Antunez M.D. Physici ans 2020-04-28 2020-04-28 Appointmen GERALD WALTON Pulmonary & [id number] Univers 10:45:00 10:45:00 t; TEDDY WALTON M.D. Sleep sofia [facility] M.[facility]. Physici ans 2020-04-20 2020-04-20 [facility] [id number] eClinic 14:15:00 14:15:00 Integrati Integrative alWorks ve Family Family Medcine Medcine 2020-04-18 2020-04-18 [facility] [id number] eClinic 21:31:00 21:31:00 Integrati Integrative alWorks ve Family Family Medcine Medcine 2020-04-18 2020-04-18 Appointmen GERALD YADAV Non-Invasiv [id number] Univers 15:00:00 15:00:00 t; Shanice YADAV i [facility] Physici ans 2020-04-18 2020-04-18 Appointmen CHASIDY DUARTE Multispecia [id number] Univers 14:00:00 14:00:00 t; [place], STRESS lty - ity of [place] Jason Quintero s EAR, Physici STRESS ans 2020-04-12 2020-04-12 Appointmen GERALD CHAMBERLAIN Cardiology [id number] Univers 14:20:00 14:20:00 t; AMANDA CHAMBERLAIN, [facility] ity Pedro PATEL [facility] Physici ans 2020-03-07 2020-03-07 Appointmen GERALD YADAV UTP [id number] Univers 15:30:00 15:30:00 t; DAMARIS YADAV ity [address] Physici ans 2020-02-24 2020-02-24 Appointmen GERALD WALTON Pulmonary & [id number] Univers 10:00:00 10:00:00 t; TEDDY WALTON M.D. Sleep ity of [facility] Tulio Vasquez Physici ans 2020-01-19 2020-01-19 [facility] [id number] eClinic 09:53:00 09:53:00 Integrati Integrative alWorks ve Family Family Medcine Medcine 2020-01-18 2020-01-18 [facility] [id number] eClinic 08:48:00 08:48:00 Integrati Integrative alWorks ve Family Family Medcine Medcine 2020-01-12 2020-01-12 [facility] [id number] eClinic 20:34:00 20:34:00 Integrati Integrative alWorks ve Family Family Medcine Medcine 2020-01-11 2020-01-11 [facility] [id number] eClinic 11:00:00 11:00:00 Integrati Integrative alWorks ve Family Family Medcine Medcine 2019-12-24 2019-12-24 [facility] [id number] eClinic 07:57:00 07:57:00 Integrati Integrative alWorks ve Family Family Medcine Medcine 2019-11-25 2019-11-25 Appointmen GERALD LOPES Orthopedics [id number] Univers 11:30:00 11:30:00 t; Pedro SKY - [place], [place] Sergey SKY M.D. ans 2019-09-27 2019-09-27 [facility] [id number] eClinic 14:30:00 14:30:00 Integrati Integrative alWorks ve Family Family Medcine Medcine 2019-09-06 [facility]D LOPES Orthopedics [id number] [facility] 15:15:00 15:15:00 t; Pedro SKY - [place], [place] Sergey SKY M.D. ans 2019-08-16 2019-08-16 [facility] [id number] eClinic 08:26:00 08:26:00 Integrati Integrative alWorks ve Family Family Medcine Medcine 2019-06-15 2019-06-15 [facility] [id number] eClinic 17:32:00 17:32:00 Integrati Integrative alWorks ve Family Family Medcine Medcine 2019-06-15 2019-06-15 [facility] [id number] eClinic 13:04:00 13:04:00 Integrati Integrative alWorks ve Family Family Medcine Medcine 2019-05-26 2019-05-26 [facility] [id number] eClinic 11:30:00 11:30:00 Integrati Integrative alWorks ve Family Family Medcine Medcine 2019-05-24 2019-05-24 [facility] [id number] eClinic 10:45:00 10:45:00 Integrati Integrative alWorks ve Family Family Medcine Medcine 2019-05-18 2019-05-18 [facility] [id number] eClinic 22:33:00 22:33:00 Integrati Integrative alWorks ve Family Family Medcine Medcine 2019-03-04 2019-03-04 [facility] [id number] eClinic 20:13:00 20:13:00 Integrati Integrative alWorks ve Family Family Medcine Medcine 2019-02-05 2019-02-05 [facility] [id number] eClinic 09:47:00 09:47:00 Integrati Integrative alWorks ve Family Family Medcine Medcine 2019-02-04 2019-02-04 [facility] [id number] eClinic 21:13:00 21:13:00 Integrati Integrative alWorks ve Family Family Medcine Medcine 2019-02-04 2019-02-04 [facility] [id number] eClinic 10:00:00 10:00:00 Integrati Integrative alWorks ve Family Family Medcine Medcine 2018-10-01 2018-10-01 Appointmen [facility] Orthopedics [id number] Univers 11:00:00 11:00:00 t; Pedro SKY at [place], [place] Sergey SKY M.D. ans 2018-08-17 2018-08-17 Appointmen [facility] Orthopedics [id number] Univers 10:15:00 10:15:00 t; Pedro SKY at [place], [place] Sergey SKY M.D. ans 2018-04-16 2018-04-16 [facility] [id number] Univers 14:30:00 14:30:00 t; Pedro SKY [place], [place] Sergey SKY M.D. ans 2018-04-09 2018-04-09 Appointmen [facility] Orthopedics [id number] Univers 11:15:00 11:15:00 t; Pedro SKY at [place], [place] Sergey KSY M.D. ans 2018-02-26 2018-02-26 Appointmen [facility] [id number] Univers 10:00:00 10:00:00 t; JOSE SCHULER ity of [place], M.D. [place] M.D. Physicina ans 2018-02-02 2018-02-02 Appointmen [facility] Orthopedics [id number] Univers 09:30:00 09:30:00 t; Pedro SKY at [place], [place] Sergey SKY M.D. ans 2017-01-27 2017-01-27 Appointmen [facility] [id number] Univers 10:15:00 10:15:00 t; MONTY [facility] [place] Pedro GUERRIER ans M.D. 2016-11-27 2016-11-27 [facility] [id number] Univers 15:40:00 15:40:00 t; AMANDA CHAMBERLAIN ity of [place], M.D. [place] M.D. Physici ans 2016-11-20 2016-11-20 Appointmichael CHAMBERLAIN [facility] [id number] Univers 15:30:00 15:30:00 t; AMANDA CHAMBERLAIN ity of [place], M.D. [place] M.D. Physici ans 2013-11-08 2013-11-08 Outpatient [facility] [id number] 12:30:00 23:59:00 Eddie Rosenberg 03 2013-09-20 2013-09-20 Outpatient 3 3 [id number] 10:20:12 10:20:12 2013-03-13 2013-03-13 Outpatient 3 3 [id number] 23:54:05 23:53:40 Results Test Description Test Time Test Comments Results Result Sourc e Comments [U] XRAY HAND MIN 2020-10-05 Images Univers ity of 3 VWS LEFT [id number] 10:59:00 acquired, not [place] reported on Physicians this accession number. [U] XRAY HIP 2018-02-02 Images University o f UNILATERAL MIN 2 09:38:00 acquired, not [place] VWS LEFT [id number] reported on Physician s this accession number. Chemistry 2014-11-22 6.2 [facility] 16:10:00 [place] Chemistry 2014-11-22 148 [facility] 16:10:00 [place] Chemistry 2014-11-22 118 [facility] 16:10:00 [place] Chemistry 2014-11-22 46 [facility] 16:10:00 [place] Chemistry 2014-11-22 78 [facility] 16:10:00 [place] Chemistry 2014-11-22 137 MEQ/L [facility] 16:10:00 [place] Chemistry 2014-11-22 4.3 MEQ/L [facility] 16:10:00 [place] Chemistry 2014-11-22 0.8 [facility] 16:10:00 [place] Chemistry 2014-11-22 12 [facility] 16:10:00 [place] Chemistry 2014-11-22 16:10:00 Test Item Value Reference Range Interpretation Comme nts BUN/CREAT (test code = BUN/CREAT) 15 01-05 [facility] AcdaiopLqhqpmbqi3334-16-75 16:10:003.4[facility] 2014-11-22 16:10:008.8[facility] YxgonsqUmbcyepuo2189-08-00 16:10:0027[facility] VxtwmmnErxgnluwh8254-14-23 16:10:0013[facility] TgovkuzQcusgbycn2620-57-76 16:10:0070[facility] NwznqrfPmkjcogxp2866-14-12 16:10:463921Ikyylxws [place] Cshugrfzo4195-74-32 16:10:005.82[facility] HvepbkoXtzrricjk6461-73-45 16:10:00 2.000[facility] NdqrmoiDsajfvxgg3330-32-80 16:10:0011.9[facility]ann[facility] 2014-11-22 16:10:0079[facility] GtvzxotJgldzvlwh3008-26-78 16:10:0012.5[facility]orial XfconmeWoslqbkifj7173-79-25 16:10:0012.2[facility]orial VaspjqrZlxqdpcpfb9179-92-90 16:10:0037.5[facility] HojjnfiYpsabvqsrb9217-02-20 16:10:72197 K/CMMMemorial NlwafmpHisqoinuai1123-53-38 16:10:00Light YellowMemorial HermannUrinalysis 2014-11-22 16:10:00OccasionalMemorial MiirmagIhflcqdec9471-73-32 13:54:006.2 Memorial OvyonnuSqicjxcpg7640-27-95 13:54:08472 MEQ/LMemorial HermannChemistry 2014-05-03 13:54:004.4 MEQ/LMemorial NcodmfuFeqqghoil8018-44-93 13:54:006.2 [facility] EcgdjpaGppbykaay2377-28-29 13:54:45224 MEQ/LMemorial HermannChemistry 2014-05-03 13:54:004.4 MEQ/LMemorial IhzquctEcxhogdbn6304-68-66 13:54:000.7 [facility] IzbfoiqKaceytdst4289-28-55 13:54:0013[facility]ann[facility] 2014-05-03 13:54:00 Test Item Value Reference Range Interpretation Comments BUN/CREAT (test code = BUN/CREAT) 19 1 6-25 Memorial LrmlpcuNkkrgikty9764-64-12 13:54:003.7[facility] HermannChemistry 2014-05-03 13:54:008.8[facility]orial WzsqtfbEdxuaibjc8771-97-88 13:54:0029[facility] UntmxxcUjwecgsgy1913-93-31 13:54:0014[facility] CbxjiklQkfvtfuun2419-93-86 13:54:0074[facility] MxuuraeMvtiqqwax0364-47-14 13:47:006.3[facility] Bjpcjllix3743-28-19 13:47:03600Vjopbqjq PqzabnlSmpovgmju4286-12-21 13:47:61181 [facility] SjwjvjwLbwajrjhg7865-18-74 13:47:006.3[facility] 2013-12-09 13:47:81322Puiczxss LwvbayiAjcxrqmqj1831-34-76 13:47:84045Emlqlqwq KuhaaeoHnqywrjpl3855-72-01 13:47:0046[facility] KzzhoevSgtfbcxjn0644-02-98 13:47:0086[facility] BlyjprcDptzbkema6081-24-30 13:47:61466 [facility] [place] Fweqcqvls5478-22-17 13:47:004.4 MEQ/LMem[facility] LgceputHublqpzgw2896-35-45 13:47:000.7[facility] RpspfvlOjcwgwzgz9484-87-32 13:47:0012[facility] Szccntmxw8143-02-52 13:47:00 Test Item Value Reference Range Interpretation Comments BUN/CREAT (test code = BUN/CREAT) 17 1 6-25 [facility] VlwmtpaBanmkrmlv5589-98-16 13:47:004.0[facility] 2013-12-09 13:47:008.9[facility] RusbdahNagarsajk6508-65-98 13:47:0055[facility] TclolyoQtooffhdm6409-34-51 13:47:0026[facility] OkdhfqhUcwtmxejk5046-72-18 13:47:0067[facility] TzfbdlkAatmsamxr0641-57-22 13:47:001.600[facility] Tpquecdqxu9939-75-64 13:47:0013.1[facility] KryybxcWjylqijiou9995-84-81 13:47:00 40.3[facility] CoshwncHljanrccuw6847-07-89 13:47:01555 K/[facility] [place] Rkkcyjxuuv3499-20-80 13:47:00[facility] DzuekzsDxsnafthki5668-60-11 13:47:00 [facility] TdwbfpkUsamwgtojf0638-44-59 13:47:00[facility] Dyrnqsgrii0870-39-12 13:47:00[facility] IxboloyKsjslfipkz0734-32-02 13:47:00[facility] BvlblhgWeiwyolsrq0870-74-15 13:47:00[facility] PzjbjqpMdkamjfyeu9168-79-11 16:56:0012.5[facility] WlrbxeiNdfbvmwttm0487-91-17 16:56:0038.1[facility] LcoollpGyippayeyg3423-39-56 16:56:72203 K/CMMMemorial FgorevvPavcgjhaiz8849-39-77 05:46:00NONE SEEN[facility]annUrinalysis 2013-06-06 05:46:00NONE SEEN[facility] WjsylnpQhaacthjwh0071-68-27 05:46:00NONE [facility]EN[facility] GspdizhZsgsrqaudj4059-36-94 05:46:00NONE [facility] Opalhftuep9878-83-54 05:46:00NONE SEEN[facility] KkucyefBxrpjczdvs2300-23-44 05:46:00NONE SEEN[facility] EedwxtaFurcokiszt4888-93-42 05:46:00NONE SEEN[facility] IwipchbCpmmmkbkqm4715-52-93 05:46:00NONE [facility]ann[facility]inalysis 2013-06-06 05:46:00NONE [facility]EN[facility] ZjwdpsmYhxatigysh1387-45-97 05:46:00NONE [facility]EN[facility] KdlxfoySxbdreryvv4772-59-13 05:46:00NONE [facility] [place] Wxocbkbszg5417-09-34 05:46:00NONE [facility]EN[facility] GpuakisDozbzkfmko8946-82-14 05:46:00NONE [facility]EN[facility] JrwvqwkOomzgsukel8995-35-89 05:46:00NONE [facility]EN[facility] NdictwdAwawcgdars7401-97-94 05:46:00NONE [facility]annUrinalysis 2013-06-06 05:46:00NONE SEEN[facility] OgtixygRwtbzsvcqo7838-71-57 05:46:00NONE [facility]EN[facility] GjawprkPbarlaaesb0746-73-66 05:46:00NONE [facility] Otugevstzh1476-02-56 05:46:00NONE [facility]EN[facility] VezvylfOdacmwtynz6099-20-61 05:46:00NONE SEEN[facility] SjqxoreUuyogllxcx0878-92-56 05:46:00NONE [facility]EN[facility] FntnmbsTtyzhlmxsp0683-54-36 05:46:00NONE [facility]annUrinalysis 2013-06-06 05:46:00NONE [facility]EN[facility] UlqbfpuHqytrrxbqe2733-49-05 05:46:00NONE SEEN[facility] FulpzfhJazhrkpvbi0693-90-25 05:46:00NONE [facility] Fmtlmqkoun8790-77-59 05:46:00NONE [facility]EN[facility] OqiufsqRiwtyscmte7969-71-51 05:46:00NONE [facility]EN[facility] YqpwjfqSnkrnnicbu7509-41-61 05:46:00NONE [facility]EN[facility] FqculeqWrfgzyonly9108-38-61 05:46:00NONE [facility]annUrinalysis 2013-06-06 05:46:00NONE [facility]EN[facility] InodrrjSpqbpfdtsa8002-39-59 05:46:00NONE [facility] JhbkvpfZovnaxvufi9425-23-47 05:46:00NONE [facility] [place] Xmjnhrnlyc2508-25-34 05:46:00NONE [facility]EN[facility] RfpahlnDxybkruqyd7500-23-60 05:46:00NONE SEEN[facility] LaltmcwAehawjknqk3729-90-10 05:46:00NONE [facility]EN[facility] PhrovpwHpltzmicil1056-12-17 05:46:00NONE [facility]annUrinalysis 2013-06-06 05:46:00NONE [facility]EN[facility] WgdknfnMsfxaklfzm3279-75-31 05:46:00NONE [facility] QvcarujAbiukzgkza9969-08-61 05:46:00NONE [facility] [place] Utwapclmlm1560-69-04 05:46:00NONE [facility] LkmytxbUrubinzhuh6653-42-66 05:46:00NONE [facility] MhmntmhIosutzymdl6441-62-38 05:46:00NONE [facility] QqnuuebDuipdumukc3001-67-85 05:46:00NONE [facility]annUrinalysis 2013-06-06 05:46:00NONE [facility]EN[facility] ZpehhpdRgcwtanfyb3270-11-69 05:46:00NONE [facility]EN[facility] YjfooxzDsfgkxbrro6404-68-90 05:46:00NONE [facility] [place] Rdiqyncwau1826-76-28 05:46:00NONE [facility] LizyrfzTypctdoigw8075-14-28 05:46:00NONE [facility] RjhjkprTlwcgnojcj1604-02-09 05:46:00NONE [facility] SpgjcohNbmyzmyzdv1432-27-11 05:46:00NONE [facility]annUr[facility] 2013-06-06 05:46:00NONE [facility]EN[facility] ByklfjfBcynewetig2668-24-65 05:46:00NONE [facility] XzdnhtsMjyzvpwinf0868-98-30 05:46:00NONE [facility] [place] Rywlbflhvf5027-30-91 05:46:00NONE [facility]EN[facility] PmryovqHqgzvwmgcg0720-35-42 05:46:00NONE [facility] TodwgdbYaeumzphyu9995-32-36 05:46:00NONE [facility] HzyirylHkwgtturkf8025-31-69 05:46:00NONE [facility]ann[facility] 2013-06-06 05:46:00NONE [facility] JcqtzrbHcuoivmeoe8831-80-31 05:46:00NONE [facility] EzqvaqxNcwloqvsit8065-92-93 05:46:00NONE [facility] [place] Lbapbyybni4310-32-56 05:46:00NONE [facility]EN[facility] YmllujuAifpdtokgt9644-68-57 05:46:00NONE [facility]EN[facility] KezisbuGwwlcgynjz5687-60-29 05:46:00NONE [facility] SetrnyfDyqrcxofpv3151-53-03 05:46:00NONE [facility]annUrinalysis 2013-06-06 05:46:00NONE [facility] PwobjpbVmsfviazej0290-97-99 05:46:00NONE [facility] YptuikgKbbrzfcrre0605-63-32 05:46:00NONE [facility] [place] Kglworxnvr1304-22-32 05:46:00NONE [facility] IeypohgBiocydawvy1407-29-92 05:46:00NONE [facility] GjbslywSvcndyttxu3715-65-32 05:46:00NONE [facility] TwpbzewSjdssnqpgf2745-76-57 05:46:00NONE [facility]ann[facility] 2013-06-06 05:46:00NONE [facility] TpktrqqAztzmkmcmq4446-25-56 05:46:00NONE [facility] WmhoaraTyzatqggtc2364-48-99 05:46:00NONE [facility] [place] Njnjgpngsd1410-52-66 05:46:00NONE [facility]EN[facility] CwpbrjiWigdvndsca4707-00-13 05:46:00NONE [facility]EN[facility] DfcefqdDqkzxueude3877-18-20 05:46:00NONE [facility] XiemfzmBhemmlchsq1149-39-12 05:46:00NONE [facility]ann[facility] 2013-06-06 05:46:00NONE [facility] TipwrucNyamcheatj3732-78-42 05:46:00NONE [facility] PuycvmlVuecwazjah6736-20-06 05:46:00[facility] Hjnvlliynn2327-96-79 05:46:00NONE [facility] RpodwjmUlrjrfjogb8198-38-08 05:46:00NONE [facility] NpyvetpYeptxhznej7712-65-63 05:46:00NONE [facility] RfwyfkdLzkyjynajx2151-24-76 05:46:00NONE [facility]annUr[facility]ysis 2013-06-06 05:46:00NONE [facility] DtqlpauPthgllgfxm7031-90-03 05:46:00NONE [facility] QpazpfuJevanonrtk5977-87-89 05:46:00NONE [facility] Kdhhljpbdb6670-76-83 05:46:00NONE [facility] RhtlroiFsyuawukns0604-48-62 05:46:00NONE [facility] YgwnttlNaolvozeqf4857-06-35 05:46:00NONE [facility] VrtlmpzHsxawjpdic0730-13-91 05:46:00NONE [facility]ann[facility]inalysis 2013-06-06 05:46:00NONE [facility] GomsqjqZvhvdpvkba2421-14-25 05:46:00NONE [facility] WqbzsnjMaozhalnvc8934-49-38 05:46:00[facility] [place] Xcddeouwzi5242-53-67 05:46:00NONE [facility] CxzotzkOfcxetuwmn6994-03-89 05:46:00NONE [facility] SlofhenJracnpqwyn3073-81-49 05:46:00NONE [facility] ZteedzlNhcdshjbxk9947-13-34 05:46:00NONE [facility]ann[facility] 2013-06-06 05:46:00NONE [facility] EkdgatcQxpzmvdcry4210-52-91 05:46:00NONE [facility] CaxyzccCeovehhkuk1687-05-53 05:46:00NONE [facility] Mkiozhkdsj7258-56-28 05:46:00NONE [facility] JfsmednOyykfmyhse5277-18-35 05:46:00NONE [facility] ZxkbppyPzklfbjlgr4631-93-73 05:46:00NONE [facility] ZhvvdgaPronauzism5742-03-08 05:46:00NONE [facility]ann[facility]ysis 2013-06-06 05:46:00NONE [facility] LdkfdcePkoqyagkjf3982-17-32 05:46:00NONE [facility] JorjvljGztwteuvge2129-49-90 05:46:00NONE [facility] [place] Bmrxasmmyf1920-94-93 05:46:00NONE [facility] OhyjnsfEdkhcysqzt3988-35-37 05:46:00NONE [facility] StnvmxdMxfoqwtiez0736-55-99 05:46:00NONE [facility] SgobtjfLjotmongbr2976-72-81 05:46:00NONE [facility]ann[facility] 2013-06-06 05:46:00NONE [facility] BjhzihbFyvjpabrim2013-21-91 05:46:00NONE [facility] SygthwzGuvrzmsirl4947-68-53 05:46:00NONE [facility] Zkmilubfgj2080-77-50 05:46:00NONE [facility] OtkuumcGojmhmwftj7559-52-36 05:46:00NONE [facility] UeblzjjYkinzixbbj4387-37-55 05:46:00NONE [facility] AfhowpmHreivxczya5896-88-14 05:46:00NONE [facility]ann[facility]inal[facility] 2013-06-06 05:46:00NONE [facility] FludthjInkgbmgfwu3816-75-07 05:46:00NONE [facility] ZnddselZxqlnamnfn6861-20-27 05:46:00NONE [facility] Gsyactqzkc3865-88-80 05:46:00NONE [facility] PhfipamCsvtopkyda6664-18-18 05:46:00NONE [facility] ImashulFgkqlogpdx6093-96-45 05:46:00NONE [facility] AbqdjsqUcakbjqobv5740-32-78 05:46:00NONE [facility]ann[facility] 2013-06-06 05:46:00NONE [facility] VnzypagNcuviatnbo9012-77-76 05:46:00NONE [facility] OmygibzSeoobggjmx6003-63-05 05:46:00NONE [facility] [place] Msjnokchis8774-71-78 05:46:00NONE [facility] HiswcsjNilpimpept0886-11-12 05:46:00NONE [facility] ZrbkxtjZzgyhclyur1765-67-12 05:46:00NONE [facility] ZzafwhbSnmllrusqi2704-27-67 05:46:00NONE [facility] 2013-06-06 05:46:00NONE [facility] ObcskhnUnfglkelbr5675-48-68 05:46:00NONE [facility] SnalwmmXscrfxlpwr1338-36-42 05:46:00[facility] [place] Ehrulwtjel2793-92-24 05:46:00NONE [facility] EfqjfuyCbqytojbov1975-04-20 05:46:00NONE [facility] LrdjxzvZcadzjjqkn0185-45-80 05:46:00NONE [facility] DkdzwgjQylyzrqvhy9455-76-09 05:46:00NONE [facility] 2013-06-06 05:46:00NONE [facility] BgafisoMtgxfnosoj1070-86-31 05:46:00NONE [facility] OfhceiqBngosmamcv6276-11-15 05:46:00NONE [facility] Belxdnhoas2332-38-86 05:46:00NONE [facility] WmndalzFajcpdvfom8905-52-71 05:46:00NONE [facility] FgubgyoFlqaiwkxpw9314-23-61 05:46:00NONE [facility] WajypagAisuzconfw4086-75-97 05:46:00NONE [facility] 2013-06-06 05:46:00NONE [facility] QcyrnkrVnxpxcvqaf9032-20-91 05:46:00NONE [facility] GvckvwuDanwysvwal3328-07-06 05:46:00NONE [facility] [place] Noahajagsi3759-74-58 05:46:00NONE [facility] XcfzsmeTesboecbqz0113-13-63 05:46:00NONE [facility] WbpvfbcHekfudcfcs1945-39-45 05:46:00NONE [facility] QecqnpkHckmztzrav9997-01-38 05:46:00NONE [facility]ann[facility] 2013-06-06 05:46:00NONE [facility] KnjyuxbYccaocfitv1463-07-18 05:46:00NONE [facility] WfeolkjZfrnnnaptg5012-48-38 05:46:00NONE [facility] Emsblxuzrq6542-01-39 05:46:00NONE [facility] MbkwemlIavnhzrsyh5987-00-59 05:46:00NONE [facility] OlkzvyyZomnwhyomz2454-80-92 05:46:00NONE [facility] FmcdzalCcovrznygx6174-61-46 05:46:00NONE [facility] 2013-06-06 05:46:00NONE [facility] NjsqddaRnpcblinhz2083-17-16 05:46:00NONE [facility] PukoenvRauctjgpdf8994-22-34 05:46:00NONE [facility] [place] Diicqtehec0060-26-74 05:46:00NONE [facility] KdauwrrOpnsftlunw2796-61-06 05:46:00NONE [facility] QpuubvkXaaivegtwk0026-33-34 05:46:00NONE [facility] LpggmorYwihyboyfo2251-96-87 05:46:00NONE [facility]ann[facility]ysis 2013-06-06 05:46:00NONE [facility] XcxiogdOyepmlslan6235-52-51 05:46:00NONE [facility] KzqgzpbOwmnoxhrkt2024-22-15 05:46:00NONE [facility] [place] Pudfqgrlui8384-35-51 05:46:00NONE [facility] HwzfrowTzlciccmnn2092-04-67 05:46:00NONE [facility] NanaczqRpdtqdadar2271-53-32 05:46:00NONE [facility] KwlvadnHvmfltgtpk6110-58-91 05:46:00NONE [facility]annUrinalysis 2013-06-06 05:46:00NONE [facility] JvaqxcuMhzokspzju1339-80-99 05:46:00NONE [facility] YfzfgzbHsgfxsnkgr3285-83-63 05:46:00NONE [facility] Toymjldcsl1477-72-84 05:46:00NONE [facility] XghyakxWgrqzveknu6189-00-28 05:46:00NONE [facility] IrsitbaOltxlnswdy7634-00-87 05:46:00NONE [facility] VicuvgpMtpmkyijyl1762-08-22 05:46:00NONE [facility]annUrinalysis 2013-06-06 05:46:00NONE [facility] SgwghraWrdipxnfwh7771-99-63 05:46:00NONE [facility] SkmgfugLkqvmkvgjn1636-33-00 05:46:00NONE [facility] [place] Yngbaeyror9965-43-73 05:46:00NONE [facility] GrcbhmtJilqdtikp6104-94-01 05:00:001.880[facility] IygaogsTfmzomyrf3517-55-05 05:00:001.880[facility] Ojnkmpbit0242-87-86 05:00:001.880[facility] CxfvikzZsqacmuqv5115-52-88 05:00:00 1.880[facility] BzeliaiSeekpnlzf4349-75-10 13:15:005.7[facility] 2013-01-07 13:15:40981Qprbwgwx QvggstcMxlalwcow7054-67-39 13:15:99050Reyuoivc QjxwfhlRfwkoqsyo5819-16-22 13:15:005.7[facility] VrdzrmmKzzzgpowi0139-79-38 13:15:27473Dgxpvown MtsbncyUqqgtbdil9638-76-38 13:15:03615Useocw[facility] [place] Jvuanjony7234-81-60 13:15:005.7[facility] IageokqSxciwjpwc4935-55-22 13:15:47813 [facility] VzvzpuzZawujxvmx1046-93-51 13:15:98995Uehhqdlq [facility] 2013-01-07 13:15:0041[facility] XoylblmHmtcwwrel8890-57-59 13:15:69143Pxencgkl YeykvvnJxtrikoqv0850-13-81 13:15:00553 MEQ/LMemorial SeycudmEzojfjthn4217-98-98 13:15:004.4 MEQ/LMem[facility] CsjnqkfLzhvmtcxn5914-76-59 13:15:000.8[facility] Cultkueil9182-42-41 13:15:0016[facility] PjpldseInutjyuqg0715-84-31 13:15:00 Test Item Value Reference Range Interpretation Comments BUN/CREAT (test code = BUN/CREAT) 20 1 6-25 [facility] BcjeelpJntalefqo5587-91-84 13:15:004.3[facility] 2013-01-07 13:15:009.5[facility] TjliqdsXpsbqiwoe6858-89-76 13:15:0030[facility] OaihrmyLhvsfrukt0932-72-44 13:15:005.7[facility] CdhoxxvMpljxmdxj7149-33-33 13:15:88814Rzditdzq RaceyufNtjozftqd3648-40-94 13:15:28598Uhaznrzk [facility] Fzksrzmri9101-69-38 13:15:0017[facility] AduktvcOoynblgbg7454-81-26 13:15:0092 [facility] FmkkxxyKgmcwiyic4972-85-96 13:15:932775Fwdswhhf [facility] 2013-01-07 13:15:006.49[facility] NnmxqljNjltussnf0924-51-48 13:15:003.190[facility] AeideejUjuqyygyf6501-49-99 13:15:0012.9[facility] AzcjymfMglvzgpclh7063-67-09 13:15:0012.6[facility] TelxsjiUhhppkxdgr0160-70-82 13:15:0038.2[facility] [place] Dnhzadiusf2279-59-70 13:15:87361 K/CMMMemorial YmoaxfcTwsiiwztoq1702-62-70 13:15:00[facility] SbrpncwHzfmudnxcf4074-43-52 13:15:00[facility] TmyackxBrewhlystc8532-43-84 13:15:00[facility] EqgkblnQeapzvjsyx9313-59-36 13:15:00[facility] RriihqxRaljsgjbqd1148-97-00 13:15:00[facility] PlwxqguUgfcjwxtyu0030-87-37 13:15:00[facility] JynfnpnNoqkuahjtw6015-24-69 13:15:00[facility] KjkyqivHofndwzekw6556-21-61 13:15:00[facility] MxrkefnWwkhpetrey5877-01-76 13:15:00[facility] IedplkjUowkfpdjib2047-08-52 13:15:00[facility]
[2020-12-11] MEDS ORDERED: HYDROCODONE/CHLORPHEN 5 ML/OSYR ONE (17:05)
[2020-12-11 17:20] LABS: Absolute Lymphocytes (CBC) 1.5 K/uL (0.7-4.9); Basophils % 0.4 % (0-1.3); Hematocrit 41.1 % (36.0-45.0); Lymphocytes % 18.1 % (15.3-44.8); MPV 7.8 fL (7.6-11.3); RBC Red Blood Cell Count 5.18 M/uL (3.86-4.86)
[2020-12-11 17:21] LABS: Protime INR 1.01
--- NOTE | 2020-12-11 17:24 | RAD REPORT ---
EXAM DESCRIPTION: CT - Head Brain Wo Cont - 12/11/2020 5:13 pm CLINICAL HISTORY: Vertigo, syncope, right-sided ear and eye pain COMPARISON: No comparisons TECHNIQUE: Axial 5 mm thick images of the head were obtained without IV contrast. All CT scans are performed using dose optimization technique as appropriate and may include automated exposure control or mA/KV adjustment according to patient size. FINDINGS: No intracranial hemorrhage, mass, edema or shift of mid-line structures. No acute infarcti on changes seen. No abnormal extra-axial fluid collections. Ventricles are normal. Mastoid air cells are clear. The bilateral external auditory canals and middle ears are well aerated. Small air-fluid level is present in the right maxillary sinus. No other significant sinus finding. No acute bony findings. IMPRESSION: No intracranial abnormality. Right maxillary sinusitis findings with air-fluid level present. Mastoid air cells and middle ears ar e clear
--- NOTE | 2020-12-11 17:24 | RAD REPORT ---
EXAM DESCRIPTION: RAD - Chest Single View - 12/11/2020 5:03 pm CLINICAL HISTORY: Dizziness, cough and congestion COMPARISON: None TECHNIQUE: AP portable chest image was obtained 12/11/2020 5:03 pm . FINDINGS: No focal lung parenchymal process. Portable technique and large body habitus affects incre ase overall lung parenchymal opacification. Minimal interstitial edema or infiltrate could be masked. Trachea is midline. Heart and vasculature are normal. No measurable pleural effusion and no pneumotho rax. No acute bony abnormality seen. No acute aortic findings suspected. IMPRESSION: No acute cardiopulmonary process. Exam limitations could mask minimal interstitial edema or infiltrate.
[2020-12-11 17:27] LABS: ALT/SGPT 41 U/L (12-78); AST/SGOT 23 U/L (15-37); Albumin 3.8 g/dL (3.4-5.0); Alkaline Phosphatase 86 U/L (45-117); BUN Blood Urea Nitrogen 11 mg/dL (7-18); Bicarbonate 29 mmol/L (21-32); Bilirubin Direct 0.1 mg/dL (0-0.2); Bilirubin Total 0.5 mg/dL (0.2-1.0); Glucose Level 178 mg/dL (74-106); Magnesium 2.2 mg/dL (1.8-2.4); NT PRO-BNP 24 pg/mL (<125); Potassium 4.3 mmol/L (3.5-5.1); Protein, Total 8.3 g/dL (6.4-8.2); Sodium Level 139 mmol/L (136-145); Troponin (Emerg Dept Use Only) < 0.02 ng/mL (0.0-0.045)
[2020-12-11] MEDS ORDERED: MECLIZINE HCL 12.5 MG TAB ONE (17:59)
[2020-12-11 19:18] LABS: SARS-COV-2 RT PCR NEGATIVE (NEGATIVE)
[2020-12-11] MEDS ORDERED: CEFTRIAXONE/SWI 1gm 1 GM/10 ML SYR ONE (19:39)
--- NOTE | 2020-12-11 19:41 | EDPHYS ---
Physician Documentation [facility] Name: Radha Queen Age: 40 yrs Sex: Female : 1980 Arrival Date: 12/11/2020 Time: 14:33 Bed 7 Private MD: ED Physician Jd Boucher HPI: 12/11 16:53 This 40 yrs old Female presents to ER via Wheelchair with complaints of pm1 Vomiting, Dizziness. 16:53 The patient presents with vertigo. Onset: The symptoms/episode began/occurred today. pm1 Context: occurred at home, just prior to the episode the patient experienced Patient with sinus congestion, bilateral ear pain, and headache that started 10 days ago. Telemedicine with PCP and got a z-mercedes that she has completed. Patient blew her nose today and felt her right ear pop. After popping her ear she had decreased hearing to right ear and vertigo with nausea. Modifying factors: The symptoms are alleviated by nothing, the symptoms are aggravated by nothing. Associated signs and symptoms: Pertinent negatives: abdominal pain, chest pain, shortness of breath. Severity of symptoms: in the emergency department the symptoms have improved. The patient has not experienced similar symptoms in the past. Historical: - Allergies: 14:49 Sulfa (Sulfonamide Antibiotics); ll1 14:49 Doxycycline; ll1 - PMHx: 14:49 Hypertension; Diabetes - NIDDM; ll1 - PSHx: 14:49 Cholecystectomy; ll1 - Immunization history:: Flu vaccine is up to date. - Social history:: Smoking status: Patient denies any tobacco usage or history of. ROS: 16:53 Constitutional: Negative for fever, chills, and weight loss, Eyes: Negative for injury, pm1 pain, redness, and discharge. 16:53 Cardiovascular: Negative for chest pain, palpitations, and edema, Respiratory: Negative for shortness of breath, cough, wheezing, and pleuritic chest pain, Abdomen/GI: Negative for abdominal pain, nausea, vomiting, diarrhea, and constipation, Back: Negative for injury and pain, MS/Extremity: Negative for injury and deformity, Skin: Negative for injury, rash, and discoloration. 16:53 ENT: Positive for ear pain, sinus congestion, sinus pain, sore throat, Negative for drainage from ear(s). 16:53 Neuro: Positive for dizziness, headache, Negative for numbness, tingling, weakness. Exam: 16:53 Constitutional: This is a well developed, well nourished patient who is awake, alert, pm1 and in no acute distress. Head/Face: Normocephalic, atraumatic. 16:53 Skin: Warm, dry with normal turgor. Normal color with no rashes, no lesions, and no evidence of cellulitis. MS/ Extremity: Pulses equal, no cyanosis. Neurovascular intact. Full, normal range of motion. 16:53 Eyes: Exam is negative for acute changes, Extraocular movements: no acute changes, Conjunctiva: normal. 16:53 ENT: External ear(s): are unremarkable, Ear canal(s): are normal, TM's: bulging, bilaterally, erythema, that is mild, bilaterally, Mouth: is normal, Posterior pharynx: is normal. 16:53 Cardiovascular: Exam negative for acute changes, Rate: normal, Rhythm: regular, Pulses: no pulse deficits are appreciated, Edema: is not appreciated. 16:53 Respiratory: Exam negative for acute changes, respiratory distress, shortness of breath, Breath sounds: are clear throughout. 16:53 Abdomen/GI: Inspection: abdomen appears normal, Palpation: abdomen is soft and non-tender, in all quadrants. 16:53 Neuro: Exam negative for acute changes, Orientation: is normal, Motor: is normal, moves all fours. Vital Signs: 14:49 BP 126 / 88; Pulse 82; Resp 18; Temp 97.2; Pulse Ox 96% on R/A; Weight 167.83 kg; ll1 Height 5 ft. 4 in. (162.56 cm); Pain 0/10; 17:02 BP 126 / 76; Pulse 82; Resp 18; Temp 97.5(O); Pulse Ox 99% on R/A; Weight 167.83 kg; hb Height 5 ft. 4 in. (162.56 cm); Pain 0/10; 17:50 BP 125 / 79; Pulse 75; Resp 18; Pulse Ox 98% on R/A; Pain 0/10; ld1 18:28 BP 104 / 76; Pulse 70; Resp 17; Pulse Ox 99% on R/A; bp 19:30 BP 120 / 77; Pulse 79; Resp 16; Pulse Ox 97% on R/A; jb4 17:02 Body Mass Index 63.51 (167.83 kg, 162.56 cm) hb MDM: 16:40 Patient medically screened. pm1 19:36 Data reviewed: vital signs. Data interpreted: Pulse oximetry: on room air is 99 %. pm1 Interpretation: normal. Counseling: I had a detailed discussion with the patient and/or guardian regarding: the historical points, exam findings, and any diagnostic results supporting the discharge/admit diagnosis, lab results, radiology results, the need for outpatient follow up, to return to the emergency department if symptoms worsen or persist or if there are any questions or concerns that arise at home. 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 Patient found without any data. pm1 12/11 16:39 Order name: Basic Metabolic Panel; Complete Time: 17:38 pm1 12/11 16:39 Order name: CBC with Diff; Complete Time: 18:04 pm1 12/11 16:39 Order name: LFT's; Complete Time: 17:38 pm1 12/11 16:39 Order name: Magnesium; Complete Time: 17:38 pm1 12/11 16:39 Order name: NT PRO-BNP; Complete Time: 17:38 pm1 12/11 16:39 Order name: PT-INR; Complete Time: 18:04 pm1 12/11 16:39 Order name: CT Head Brain wo Cont; Complete Time: 17:38 pm1 12/11 16:39 Order name: Troponin (emerg Dept Use Only); Complete Time: 17:38 pm1 12/11 16:39 Order name: XRAY Chest (1 view); Complete Time: 17:38 pm1 12/11 19:18 Order name: COVID-19/FLU A+B; Complete Time: 19:33 EDMS 12/11 16:39 Order name: EKG; Complete Time: 16:40 pm1 12/11 16:39 Order name: Cardiac monitoring; Complete Time: 16:58 pm1 12/11 16:39 Order name: EKG - Nurse/Tech; Complete Time: 16:59 pm1 12/11 16:39 Order name: IV Saline Lock; Complete Time: 17:02 pm1 12/11 16:39 Order name: Labs collected and sent; Complete Time: 17:02 pm1 12/11 16:39 Order name: O2 Per Protocol; Complete Time: 16:46 pm1 12/11 16:39 Order name: O2 Sat Monitoring; Complete Time: 16:46 pm1 12/11 17:18 Order name: Droplet/Contact Precautions; Complete Time: 18:04 pm1 Administered Medications: 16:46 Drug: Tussionex Pennkinetic ER (chlorpheniramine-hydrocodone) 5 ml Route: PO; hb 17:15 Follow up: Response: No adverse reaction ld1 17:49 Drug: Meclizine 50 mg Route: PO; ld1 18:04 Follow up: Response: No adverse reaction ld1 19:25 Drug: Rocephin (cefTRIAXone) 1 grams {Note: Given IVP per pharmacy protocol.} Route: jb4 IV; Rate: calculated rate; Site: right antecubital; 19:28 Follow up: Response: No adverse reaction; IV Status: Completed infusion; IV Intake: [id number] Disposition: 12/12 19:09 Co-signature as Attending Physician, Jd Boucher MD. rn Disposition: 12/11/20 19:40 Discharged to Home. Impression: Acute sinusitis, Benign paroxysmal vertigo, Otitis media, unspecified. - Condition is Stable. - Discharge Instructions: Otitis Media, Adult, Sinusitis, Adult, Vertigo. - Prescriptions for Zofran ODT 4 mg Oral tablet,disintegrating - place 1 tablet by TRANSLINGUAL route every 8 hours As needed; 12 tablet. Amoxicillin 500 mg Oral Capsule - take 1 capsule by ORAL route every 8 hours for 10 days; 30 tablet. Meclizine 25 mg Oral Tablet - take 1 tablet by ORAL route every 8 hours As needed; 30 tablet. Guaifenesin AC 10- 100 mg/5 mL Oral Liquid - take 10 milliliter by ORAL route every 4 hours As needed; 240 milliliter. - Medication Reconciliation Form, Thank You Letter, Antibiotic Education, Prescription Opioid Use form. - Follow up: Emergency Department; When: As needed; Reason: Worsening of condition. Follow up: Private Physician; When: 2 - 3 days; Reason: Recheck today's complaints, Continuance of care, Re-evaluation by your physician. - Problem is new. - Symptoms have improved. Signatures: Dispatcher [employer] EDMS Jd Boucher MD MD rn Marinas, Patrick, VAT PACKER VAT PACKER pm1 Donna Gordillo RN RN hb Bryson, James, RN RN jb4 Mary Hanson RN RN ll1 Malka Clark RN RN ld1 Corrections: (The following items were deleted from the chart) 12/11 18:25 17:18 CORONAVIRUS+MR.LAB.BRZ ordered. [facility] EDMS 19:45 19:40 12/11/2020 19:40 Discharged to Home. Impression: Acute sinusitis. Condition is pm1 Stable. Forms are Medication Reconciliation Form, Thank You Letter, Antibiotic Education, Prescription Opioid Use. Follow up: Emergency Department; When: As needed; Reason: Worsening of condition. Follow up: Private Physician; When: 2 - 3 days; Reason: Recheck today's complaints, Continuance of care, Re-evaluation by your physician. Problem is new. Symptoms have improved. pm1 19:48 17:19 Influenza Screen (A \T\ B)+BA.LAB.BRZ ordered. [facility] EDMS 19:59 19:45 12/11/2020 19:40 Discharged to Home. Impression: Acute sinusitis; Benign jb4 paroxysmal vertigo; Otitis media, unspecified. Condition is Stable. Discharge Instructions: Sinusitis, Adult, Vertigo. Prescriptions for Zofran ODT 4 mg Oral tablet,disintegrating - place 1 tablet by TRANSLINGUAL route every 8 hours As needed; 12 tablet, Amoxicillin 500 mg Oral Capsule - take 1 capsule by ORAL route every 8 hours for 10 days; 30 tablet, Meclizine 25 mg Oral Tablet - take 1 tablet by ORAL route every 8 hours As needed; 30 tablet, Albuterol Sulfate 90 mcg/actuation - inhale 1-2 puff by INHALATION route every 4-6 hours; 1 Inhaler. and Forms are Medication Reconciliation Form, Thank You Letter, Antibiotic Education, Prescription Opioid Use. Follow up: Emergency Department; When: As needed; Reason: Worsening of condition. Follow up: Private Physician; When: 2 - 3 days; Reason: Recheck today's complaints, Continuance of care, Re-evaluation by your physician. Problem is new. Symptoms have improved. pm1
--- NOTE | 2020-12-11 19:41 | ER ---
Nurse's Notes [facility] Name: Radha Queen Age: 40 yrs Sex: Female : 1980 Arrival Date: 12/11/2020 Time: 14:33 Bed 7 Private MD: Diagnosis: Acute sinusitis;Benign paroxysmal vertigo;Otitis media, unspecified Presentation: 12/11 14:49 Chief complaint: Patient states: Cough/congestion for 10 days, done with Z-pack. Blew ll1 her nose today and felt sudden pop to R ear. Severe pain, with N/V, near syncope and sweating. Came in for eval. No fever for 4 days. Coronavirus screen: Client denies travel out of the [place] in the last 14 days. Client presents with at least one sign or symptom that may indicate coronavirus-19. Standard/surgical mask placed on the client. Coronavirus screen: cough unrelated to allergies, fever, loss of taste or smell. Ebola Screen: Patient denies travel to an Ebola-affected area in the 21 days before illness onset. Initial Sepsis Screen: Does the patient meet any 2 criteria? No. Patient's initial sepsis screen is negative. Does the patient have a suspected source of infection? Yes: Other: ear. Risk Assessment: Do you want to hurt yourself or someone else? Patient reports no desire to harm self or others. Onset of symptoms was December 11, 2020. 14:49 Method Of Arrival: Wheelchair ll1 14:49 Acuity: KATHRINE 3 ll1 Historical: - Allergies: 14:49 Sulfa (Sulfonamide Antibiotics); ll1 14:49 Doxycycline; ll1 - PMHx: 14:49 Hypertension; Diabetes - NIDDM; ll1 - PSHx: 14:49 Cholecystectomy; ll1 - Immunization history:: Flu vaccine is up to date. - Social history:: Smoking status: Patient denies any tobacco usage or history of. Screenin:02 Abuse screen: Denies threats or abuse. Denies injuries from another. Nutritional hb screening: No deficits noted. Tuberculosis screening: No symptoms or risk factors identified. Fall Risk Total Mccoy Fall Scale indicates No Risk (0-24 pts). Assessment: 17:02 General: Appears in no apparent distress. comfortable, Behavior is calm, cooperative, hb appropriate for age. Pain: Denies pain. Neuro: Level of Consciousness is awake, alert, obeys commands, Oriented to person, place, time, situation, Appropriate for age. Cardiovascular: Capillary refill < 3 seconds Patient's skin is warm and dry. Rhythm is sinus rhythm. Respiratory: Airway is patent Respiratory effort is even, unlabored, Respiratory pattern is regular, symmetrical. GI: Abdomen is round non-distended, obese. : No signs and/or symptoms were reported regarding the genitourinary system. EENT: Tympanic membrane reddened on right ear and left ear Reports pain in forehead. Derm: No signs and/or symptoms reported regarding the dermatologic system. Musculoskeletal: No signs and/or symptoms reported regarding the musculoskeletal system. 17:50 Reassessment: Patient appears in no apparent distress at this time. No changes from ld1 previously documented assessment. Patient and/or family updated on plan of care and expected duration. Pain level reassessed. Patient is alert, oriented x 3, equal unlabored respirations, skin warm/dry/pink. Waiting in results with at bedside. 18:28 Reassessment: Patient appears in no apparent distress at this time. Patient and/or bp family updated on plan of care and expected duration. Pain level reassessed. Patient is alert, oriented x 3, equal unlabored respirations, skin warm/dry/pink. 19:00 Reassessment: Patient appears in no apparent distress at this time. Patient and/or jb4 family updated on plan of care and expected duration. Pain level reassessed. Patient is alert, oriented x 3, equal unlabored respirations, skin warm/dry/pink. Vital Signs: 14:49 BP 126 / 88; Pulse 82; Resp 18; Temp 97.2; Pulse Ox 96% on R/A; Weight 167.83 kg; ll1 Height 5 ft. 4 in. (162.56 cm); Pain 0/10; 17:02 BP 126 / 76; Pulse 82; Resp 18; Temp 97.5(O); Pulse Ox 99% on R/A; Weight 167.83 kg; hb Height 5 ft. 4 in. (162.56 cm); Pain 0/10; 17:50 BP 125 / 79; Pulse 75; Resp 18; Pulse Ox 98% on R/A; Pain 0/10; ld1 18:28 BP 104 / 76; Pulse 70; Resp 17; Pulse Ox 99% on R/A; bp 19:30 BP 120 / 77; Pulse 79; Resp 16; Pulse Ox 97% on R/A; jb4 17:02 Body Mass Index 63.51 (167.83 kg, 162.56 cm) hb ED Course: 14:33 Patient arrived in ED. bp1 14:49 Arm band placed on. ll1 14:52 Triage completed. ll1 16:16 Patient placed in an exam room, on a stretcher. ll1 16:17 Jarek Oden, JOB TRACER is PHCP. pm1 16:17 Jd Boucher MD is Attending Physician. pm1 16:38 Donna Gordillo, RN is Primary Nurse. hb 16:59 Patient has correct armband on for positive identification. Bed in low position. Call mh5 light in reach. Side rails up X 1. Warm blanket given. html web developer on. Pulse ox on. NIBP on. 16:59 EKG done, by ED staff, reviewed by Jarek Oden NP. mh5 17:02 XRAY Chest (1 view) In Process Unspecified. EDMS 17:02 No provider procedures requiring assistance completed. Inserted saline lock: 20 gauge hb in right antecubital area, using aseptic technique. Blood collected. 17:12 Initial lab(s) drawn, by ED staff, sent to lab. mh5 17:13 CT Head Brain wo Cont In Process Unspecified. EDMS 19:26 Primary Nurse role handed off by Donna Gordillo, RN jb4 19:26 Kemar Manuel, RN is Primary Nurse. jb4 19:30 IV discontinued, intact, bleeding controlled, No redness/swelling at site. Pressure jb4 dressing applied. Administered Medications: 16:46 Drug: Tussionex Pennkinetic ER (chlorpheniramine-hydrocodone) 5 ml Route: PO; hb 17:15 Follow up: Response: No adverse reaction ld1 17:49 Drug: Meclizine 50 mg Route: PO; ld1 18:04 Follow up: Response: No adverse reaction ld1 19:25 Drug: Rocephin (cefTRIAXone) 1 grams {Note: Given IVP per pharmacy protocol.} Route: jb4 IV; Rate: calculated rate; Site: right antecubital; 19:28 Follow up: Response: No adverse reaction; IV Status: Completed infusion; IV Intake: [id number] Intake: 19:28 IV: 10ml; Total: 10ml. jb4 Outcome: 19:40 Discharge ordered by MD. pm1 19:59 Discharged to home ambulatory, via wheelchair, with family. jb4 19:59 Condition: stable 19:59 Discharge instructions given to patient, Instructed on discharge instructions, follow up and referral plans. medication usage, Demonstrated understanding of instructions, follow-up care, medications, Prescriptions given X 4. 19:59 Patient left the ED. jb4 Signatures: Dispatcher [employer] EDMS Jarek Oden, JOB TRACER JOB TRACER pm1 Donna Gordillo, RN RN Kemar Good RN RN jb4 Mana Cassidy [facility] Adelfo Segura RN RN Mary Murphy RN RN ll1 Sara Laureano Lauren, RN RN ld1
[2020-12-11 20:38] VITALS: TEMP 97.5
[2020-12-11 20:42] VITALS: BP 120/77; O2SAT 97
--- NOTE | 2020-12-13 12:02 | EKG ---
Test Date: 2020-12-11 Test Time: 17:04:19 Quality Tester: ALY MEASUREMENT RESULTS: Intervals: Rate: 77 [place]: 168 QRSD: 84 QT: 398 QTc: 450 [place]: P: 67 [place]: 168 QRS: 48 T: 51 INTERPRETIVE STATEMENTS: Normal sinus rhythm Possible Left atrial enlargement Borderline ECG No previous ECG available for comparison Electronically Signed On 12-13-20 11:54:36 CDT by Mitchell Cortes
== END 2020-12-11 19:59 | disposition home or self-care (01) ==
LOC: ER 14:29
DX: J01.90 Acute sinusitis, unspecified (principal); H66.93 Otitis media, unspecified, bilateral; H81.10 Benign paroxysmal vertigo, unspecified ear; I10 Essential (primary) hypertension; E11.9 Type 2 diabetes mellitus without complications; Z88.1 Allergy status to other antibiotic agents; Z88.2 Allergy status to sulfonamides; Z20.822 Contact with and (suspected) exposure to COVID-19
CPT/HCPCS: 93005; 85025; 80048; 36415; 83735; 85610; 80076; 84484; 83880; 0240U; 70450; 71045; 96374; 99285; J0696